=== PATIENT | male | born 1955 | race Caucasian/White ===

== ENCOUNTER 2019-04-07 19:30 | Emergency (ER) | payer OTHER, SELFPAY ==
[2019-04-07 20:18] LABS: #Basophils 0.1 thou/uL (0.0-0.2); #Eosinphils 0.3 thou/uL (0.0-0.7); #Lymphocytes 3.7 thou/uL (1.20-3.40); #Monocytes 0.9 thou/uL (0.11-0.59); %Basophils 0.7 % (0.0-1.0); %Eosinophils 2.1 % (0.0-10.0); %Lymphocytes 26.3 % (21.0-51.0); %Monocytes 6.1 % (0.0-10.0); %Neutrophils 64.7 % (42.0-75.0); Hemoglobin 15.3 g/dL (14.0-18.0); Mean Corpuscular HGB CONC 34.5 g/dL (32.0-36.0); Mean Corpuscular Hemoglobin 30.4 pg (27.0-31.0); Mean Corpuscular Volume 88.1 fL (78.0-98.0); Mean Platelet Volume 7.4 fL (7.4-10.4); Platelet Count 338 thou/uL (130-400); Red Blood Cell (RBC) Count 5.04 mill/uL (4.70-6.10); White Blood Cell (WBC) Count 13.9 thou/uL (4.8-10.8)
[2019-04-07 20:36] LABS: ALT (SGPT) 13 U/L (8-55); AST (SGOT) 10 U/L (5-34); Albumin 3.9 g/dL (3.4-4.8); Alkaline Phosphatase 99 U/L (40-150); Anion Gap 17 mmol/L (10-20); BUN (Urea Nitrogen) 16 mg/dL (8.4-25.7); Bilirubin, Total 0.2 mg/dL (0.2-1.2); Calc. Creatinine Clearance 0 mL/min (70-130); Calcium 9.1 mg/dL (7.8-10.44); Carbon Dioxide 19 mmol/L (23-31); Chloride 103 mmol/L (98-107); Estimated GFR-MDRD 49; Globulin 2.8 g/dL (2.4-3.5); Glucose 272 mg/dL (80-115); Potassium 4.2 mmol/L (3.5-5.1); Protein, Total 6.7 g/dL (5.8-8.1); Sodium 135 mmol/L (136-145)
--- NOTE | 2019-04-07 22:22 | RAD ---
PORTABLE CHEST: 04/07/19 HISTORY: Syncope. COMPARISON: 06/19/16 exam. Heart size is within normal limits. Aorta is mildly tortuous. The lungs are clear of infiltrates. No significant bony findings. IMPRESSION: No active intrathoracic disease. POS: OFF
--- NOTE | 2019-04-09 11:05 | EKG ---
Test Reason : Blood Pressure : / mmHG Vent. Rate : 085 BPM Atrial Rate : 085 BPM P-R Int : 158 ms QRS Dur : 106 ms QT Int : 370 ms P-R-T Axes : 045 050 050 degrees QTc Int : 440 ms Normal sinus rhythm Normal ECG Confirmed by ELSIE DURAN ([id number]), editor continuity and script CAROL MASSEY ([id number]) on 04/09/2019 11:05:47 AM Referred By: Confirmed By:ELSIE DURAN
== END 2019-04-07 22:38 | disposition home or self-care (01) ==
LOC: ERS 19:30
DX: R42 Dizziness and giddiness (principal); I25.2 Old myocardial infarction; I10 Essential (primary) hypertension; E78.5 Hyperlipidemia, unspecified; F17.210 Nicotine dependence, cigarettes, uncomplicated; Z79.899 Other long term (current) drug therapy
CPT/HCPCS: 71045; 80053; 84484; 85025; 93005; 96360

== ENCOUNTER 2019-12-09 16:38 | Emergency (ER) | payer SELFPAY ==
--- NOTE | 2019-12-09 17:21 | RAD ---
EXAM: Two views chest PROVIDED CLINICAL HISTORY: Cough, flulike symptoms. COMPARISON: 02/04/2017 FINDINGS: Cardiac silhouette and pulmonary vasculature are within normal limits. The lungs are clear. Remote l eft-sided rib fractures again seen. Chest is stable compared to prior exam. IMPRESSION: No acute cardiopulmonary process.
== END 2019-12-09 17:52 | disposition home or self-care (01) ==
LOC: ERS 16:38
DX: J06.9 Acute upper respiratory infection, unspecified (principal); I25.2 Old myocardial infarction; I10 Essential (primary) hypertension; E78.5 Hyperlipidemia, unspecified; F17.210 Nicotine dependence, cigarettes, uncomplicated; Z71.6 Tobacco abuse counseling; Z79.899 Other long term (current) drug therapy
CPT/HCPCS: 71046; 87804; 99406

== ENCOUNTER 2020-06-28 18:06 | Inpatient (IN) | payer OTHER, SELFPAY ==
[~2020-06-28 18:06] MED LIST: Iopamidol-370 76% 500 ML 1 ML ONE
[2020-06-28 18:26] LABS: #Basophils 0.1 thou/uL (0.0-0.2); #Eosinphils 0.3 thou/uL (0.0-0.7); #Lymphocytes 3.4 thou/uL (1.20-3.40); #Monocytes 0.9 thou/uL (0.11-0.59); #Neutrophils 9.1 thou/uL (1.40-6.50); %Basophils 0.7 % (0.0-1.0); %Eosinophils 1.8 % (0.0-10.0); %Lymphocytes 24.9 % (21.0-51.0); %Monocytes 6.3 % (0.0-10.0); %Neutrophils 66.3 % (42.0-75.0); Hemoglobin 16.8 g/dL (14.0-18.0); Mean Corpuscular HGB CONC 34.7 g/dL (32.0-36.0); Mean Corpuscular Hemoglobin 30.6 pg (27.0-31.0); Mean Platelet Volume 7.7 fL (7.4-10.4); Platelet Count 337 thou/uL (130-400); RBC Distribution Width 11.8 % (11.5-14.5); Red Blood Cell (RBC) Count 5.49 mill/uL (4.70-6.10); White Blood Cell (WBC) Count 13.7 thou/uL (4.8-10.8)
[2020-06-28 18:32] LABS: INR-International Normal Ratio 0.9; Prothrombin Time 12.4 sec (12.0-14.7)
--- NOTE | 2020-06-28 18:40 | CT ---
CT BRAIN NONCONTRAST: DATE: 06/28/2020 HISTORY: 65-year-old male with acute stroke symptoms: New right upper extremity weakness and numbness. At 6:33 PM 06/28/2020 Dr. Salazar verbally gave this report to Dr. Roach. COMPARISON: 07/19/[address] FINDINGS: The 07/19/2007 CT was normal. The MRI of that same day showed what was then a small acute infarction i nvolving the left basal ganglia extending to involve the left pillai radiata, caudate body, and periventricular white matter. That corresponds to a patchy small apparently old infarction in that lo cation on the current CT. On the current CT, there are similar but several smaller patchy areas of low attenuation elsewhere in the left frontal deep cerebral white matter and left genu of corpus callosum. These are of indeterminate ages. They occurred sometime after 07/19/2007. No mass effect, midline shift, obstructive hydrocephalus, acute intra-axial or extra-axial hemorrhage , extra-axial fluid collection, or calvarial fracture. IMPRESSION: Several small patchy white matter infarctions in the left frontal deep cerebral white matter. The lar gest of these, involving the left corpus striatum, is old. The others are age-indeterminate.
[2020-06-28 18:42] LABS: ALT (SGPT) 12 U/L (8-55); AST (SGOT) 10 U/L (5-34); Alkaline Phosphatase 96 U/L (40-110); Anion Gap 13 mmol/L (10-20); BUN (Urea Nitrogen) 16 mg/dL (8.4-25.7); Bilirubin, Total 0.4 mg/dL (0.2-1.2); CK (CPK) 32 U/L (30-200); Calc. Creatinine Clearance 0 mL/min (70-130); Calcium 9.1 mg/dL (7.8-10.44); Carbon Dioxide 24 mmol/L (23-31); Chloride 100 mmol/L (98-107); Estimated GFR-MDRD 71; Glucose 352 mg/dL (80-115); Potassium 4.1 mmol/L (3.5-5.1); Sodium 133 mmol/L (136-145)
[2020-06-28] MEDS ORDERED: Aspirin 325 MG TAB ONE (18:47)
--- NOTE | 2020-06-28 18:56 | CT ---
CT ANGIOGRAM NECK WITH CONTRAST CT ANGIOGRAM BRAIN WITH CONTRAST: DATE: 06/28/2020 HISTORY: 65-year-old male with acute stroke symptoms At 6:53 PM 06/28/2020, Dr. Salazar gave verbal report to Dr. Roach TECHNIQUE: After IV contrast injection, arterial bolus chasing technique scan performed from aortic arch to vert ex of head. Coronal and sagittal 3-D MIP reconstructions. FINDINGS: Bilaterally symmetrical enlargement of palatine tonsils, adenoids, and lingual tonsil. No dural venous sinus thrombosis. Bilateral ACAs: No high-grade stenosis or occlusion. Bilateral MCAs: No M1 segment thrombosis, high-grade stenosis, or occlusion. Bilateral department operations manager: P1 and P2 segments patent. Bilateral superior cerebellar: Proximal portions patent Basilar: No high-grade stenosis or occlusion. Intracranial left vertebral: Patent Intracranial right vertebral: Diminutive Carotid siphons bilaterally: Heavily calcified atheromatous plaque such that difficult to evaluate de gree of stenosis. Cervical left vertebral: Origin difficult to evaluate. No high-grade stenosis in rest of vessel. Rosalinda nant. Cervical right vertebral: Diminutive. Origin difficult to evaluate. Brachiocephalic: No high-grade stenosis. Right subclavian: Obscured by streak artifact from contrast bolus in adjacent right subclavian vein. Left subclavian: No high-grade stenosis. Right common carotid: Origin partially obscured by streak artifact from contrast bolus in adjacent ve in. No high-grade stenosis in the mid and distal portions. Left common carotid: No high-grade stenosis. Right internal carotid: Multifocal calcified plaque at proximal portion, including origin. No high-gr akira stenosis. Left internal carotid: Heavily calcified and noncalcified plaque at origin and proximal internal light tid. Mild to moderate stenosis. Rest of the vessel is normal in caliber. IMPRESSION: 1) no M1 segment middle cerebral artery thrombosis or occlusion. 2) atherosclerosis of bilateral proximal internal carotid arteries without high-grade stenosis. 3) difficult to evaluate caliber of bilateral carotid siphons due to extensive atherosclerotic calcif ication. 4) diffuse hyperplasia of Waldeyer's ring.
--- NOTE | 2020-06-28 19:07 | RAD ---
CHEST ONE VIEW: 06/28/20 INDICATION: Right sided weakness. COMPARISON: Prior exam dated 12/09/19. FINDINGS: There is focal eventration of the right hemidiaphragm. The lungs are clear. Heart size is normal. No acute osseous abnormality is evident. IMPRESSION: No acute cardiopulmonary abnormality. POS: BH
[2020-06-28] MEDS ORDERED: Labetalol HCl 100 MG/20 ML VIAL SLOW IVP PRN (21:22)
[2020-06-28] MEDS ORDERED: hydrALAZINE 20 MG/ML VIAL SLOW IVP PRN (21:22)
[2020-06-28] MEDS ORDERED: Acetaminophen 325 MG TAB PO PRN (21:25)
[2020-06-28] MEDS ORDERED: Ondansetron PF 4 MG/2 ML Vial IVP PRN (21:25)
[2020-06-28] MEDS ORDERED: Electrolyte Replacement Protoc 1 EACH EACH FS SCH (21:30)
--- NOTE | 2020-06-28 21:37 | PDOC.HHP ---
Hospitalist HPI - History of Present Illness R sided weakness History of Present Illness: Patient is a 65 year old male with PMH stroke, MN, DM, HTN who presents to ED for R sided weakness. Patient reports symptoms began today at 11am, numbness and weakness of R arm and leg. He was at [facility]F clinic getting blood drawn when symptoms started. Symptoms have somewhat improved since then but still feels parasthesia and weakness on R arm and leg and having difficulty walking. He has a history of CVA 12 years ago w/ no residual deficits, MN 4 years ago[address] He sees Dr Allen of cardiology, has not had any recent cardiac imaging or tests and was supposed to see Dr Allen thursday. Patient denies known history of arrhythmia/afib. In ED, patient not a tPA candidate due to time from onset. WBC 13, glucose 352, CXR unremarkable, CT head with chronic appearing white matter changes, CTA head with no M1 occlusion or blockages. Patient to be admitted to complete stroke rule out. Medication list in ED notes and meditech reviewed, however patient states he only takes an aspirin and a lisinopril every day. Ahsan called and she is trying to provide actual current medication list. He is smoker, 1.5 ppd. Hospitalist ROS - Review of Systems Constitutional: denies: fever, chills, sweats, weakness, malaise, other Eyes: denies: pain, vision change, conjunctivae inflammation, eyelid inflammation, redness, other ENT: denies: ear pain, ear discharge, nose pain, nose discharge, nose congestion , mouth pain, mouth swelling, throat pain, throat swelling, other Respiratory: denies: cough, dry, shortness of breath, hemoptysis, SOB with excertion, pleuritic pain, sputum, wheezing, other Cardiovascular: denies: chest pain, palpitations, orthopnea, paroxysmal noc. dyspnea, edema, light headedness, other Gastrointestinal: denies: nausea, vomiting, abdominal pain, diarrhea, constipation, melena, hematochezia, other Genitourinary: denies: dysuria, frequency, incontinence, hematuria, retention, other Musculoskeletal: denies: neck pain, shoulder pain, arm pain, back pain, hand pain, leg pain, foot pain, other Skin: denies: rash, lesions, anni, bruising, other Neurological: reports: weakness, numbness. denies: incoordination, change in speech, confusion, seizures, other Other: weakness and numbness R sided see HPI - Medication Medications: lisinopril [facility] Jun 28, 2020 18:49 TC Charles Laine TABLET : Strength - 10 mg : ORAL Patient Dose: 10 mg Oral once a day. clopidogrel [facility] Jun 28, 2020 19:06 TC Charles Laine tablet : Strength - 75 mg : ORAL Patient Dose: 75 mg Oral. metFORMIN [facility] Jun 28, 2020 19:07 TC Charles Laine tablet : Strength - 1,000 mg : ORAL Patient Dose: 1000 mg Oral. carvedilol [facility] Jun 28, 2020 19:07 TC Charles Laine tablet : Strength - 6.25 mg : ORAL Patient Dose: 6.25 mg Oral. Hospitalist History - Past Medical History Other Medical History: Past medical history includes cardiac history, myocardial infarction, Treated with stent placement, Number of stents: 3, Notes: stroke in 2007, Past medical history includes history of hyperlipidemia, Past medical history includes history of hypertension. - Past Surgical History Other Surgical History: cardiac stents Surgical history of orthopedic surgery, partial amputation of left thumb, hernia repair. - Family History Family History: reports: no pertinent history - Social History Smoking Status: Current every day smoker (1.5 ppd) Alcohol: reports: None Drugs: reports: none - Exam General Appearance: NAD, awake alert Eye: PERRL, anicteric sclera ENT: normocephalic atraumatic, no oropharyngeal lesions, moist mucosa Neck: supple, symmetric, no JVD, no thyromegaly, no lymphadenopathy, no carotid bruit Heart: RRR, no murmur, no gallops, no rubs, normal peripheral pulses Respiratory: CTAB, no wheezes, no rales, no ronchi, normal chest expansion, no tachypnea, normal percussion Gastrointestinal: soft, non-tender, non-distended, normal bowel sounds, no palpable masses, no hepatomegaly, no splenomegaly, no bruit Extremities: no cyanosis, no clubbing, no edema Skin: normal turgor, no lesions, no rashes Neurological: cranial nerve grossly intact Neurological - other findings: R sided reduced sensation arm/leg and 4/5 muscle strength R. L normal. Musculoskeletal: normal tone, normal strength, no muscle wasting Psychiatric: normal affect, normal behavior, A&O x 3 Hospitalist Results - Labs Result Diagrams: 06/28/20 18:17 06/28/20 18:17 Lab results: WBC 13.7 thou/uL (4.8-10.8) H 06/28/20 18:17 Hgb 16.8 g/dL (14.0-18.0) 06/28/20 18:17 Hct 48.3 % (42.0-52.0) 06/28/20 18:17 MCV 88.0 fL (78.0-98.0) 06/28/20 18:17 Plt Count 337 thou/uL (130-400) 06/28/20 18:17 Neutrophils % 66.3 % (42.0-75.0) 06/28/20 18:17 Sodium 133 mmol/L (136-145) L 06/28/20 18:17 Potassium 4.1 mmol/L (3.5-5.1) 06/28/20 18:17 Chloride 100 mmol/L (98-107) 06/28/20 18:17 Carbon Dioxide 24 mmol/L (23-31) 06/28/20 18:17 BUN 16 mg/dL (8.4-25.7) 06/28/20 18:17 Creatinine 1.05 mg/dL (0.7-1.3) 06/28/20 18:17 Glucose 352 mg/dL (80-115) H 06/28/20 18:17 Calcium 9.1 mg/dL (7.8-10.44) 06/28/20 18:17 Total Bilirubin 0.4 mg/dL (0.2-1.2) 06/28/20 18:17 AST 10 U/L (5-34) 06/28/20 18:17 ALT 12 U/L (8-55) 06/28/20 18:17 Alkaline Phosphatase 96 U/L (40-110) 06/28/20 18:17 Creatine Kinase 32 U/L (30-200) 06/28/20 18:17 Troponin I 0.023 ng/mL (< 0.028) 06/28/20 18:17 B-Natriuretic Peptide 11.7 pg/mL (0-100) 06/28/20 18:17 Serum Total Protein 7.0 g/dL (5.8-8.1) 06/28/20 18:17 Albumin 4.0 g/dL (3.4-4.8) 06/28/20 18:17 Additional comment: VITAL SIGNS [facility] Jun 28, 2020 20:25 TC Rosario, Brooke BP: 141/82 Pulse: 84 Resp: 19 Pain: 0 O2 sat: 98 on (Room Air) Time: 06/28/2020 20:25. - EKG Interpretation EKG: NSR [address] changes or AVB. Hospitalist H&P A/P - Plan Plan: tristin is a 65 year old male with PMH stroke, MN, DM, HTN, HLD who presents to ED for R sided weakness. # R sided weakness # history of stroke 12 years ago # history of MN w/ stents 4 years ago # HTN # HLD numbness and weakness of R arm and leg beginning today at 11am, patient sees Dr Allen of cardiology does not have a neurologist, no recent cardiac imaging or tests and was supposed to see Dr Allen thursday. no known history of arrhythmia/afib. not tPA candidate. - admit to stroke unit w/ stroke order set, rehab consult - CT head and CTA head reports reviewed, MRI and echo ordered - consult neurology - monitor for afib on telemetry - continue ASA, add lipitor. final med rec pending from [facility]. - permissive HTN # non insulin dependant diabetes w/ hyperglycemia - start SSI, first dose now, A1C # leukocytosis - suspect due to stress of acute illness # tobacco user - smoking cessation education, nicotine patch # DVT/GI ppx # Full code
[2020-06-28 21:45] LABS: Troponin I 0.014 ng/mL (< 0.028)
[2020-06-28] MEDS ORDERED: Nicotine 14 MG PATCH TD SCH (22:00)
[2020-06-28] MEDS: Insulin Regular 300 UNITS/3 ML VIAL SC PRN (22:32)
[2020-06-29 01:18] LABS: Troponin I 0.013 ng/mL (< 0.028)
[2020-06-29 02:09] VITALS: BMI 28.8
[2020-06-29 05:26] LABS: #Basophils 0.1 thou/uL (0.0-0.2); #Eosinphils 0.3 thou/uL (0.0-0.7); #Lymphocytes 3.3 thou/uL (1.20-3.40); %Basophils 0.8 % (0.0-1.0); %Eosinophils 2.5 % (0.0-10.0); %Lymphocytes 25.8 % (21.0-51.0); %Neutrophils 62.9 % (42.0-75.0); Hemoglobin 16.1 g/dL (14.0-18.0); Mean Corpuscular Hemoglobin 29.5 pg (27.0-31.0); Mean Corpuscular Volume 89.5 fL (78.0-98.0); Mean Platelet Volume 7.7 fL (7.4-10.4); Platelet Count 322 thou/uL (130-400); Red Blood Cell (RBC) Count 5.45 mill/uL (4.70-6.10); White Blood Cell (WBC) Count 12.7 thou/uL (4.8-10.8)
[2020-06-29 06:05] LABS: Triglycerides 322 mg/dL (Less than 150)
[2020-06-29 06:14] LABS: Anion Gap 17 mmol/L (10-20); BUN (Urea Nitrogen) 17 mg/dL (8.4-25.7); Calc. Creatinine Clearance 106 mL/min (70-130); Calcium 8.8 mg/dL (7.8-10.44); Carbon Dioxide 23 mmol/L (23-31); Cardiac Risk 6.9 (Less than 4.5); Chloride 102 mmol/L (98-107); Cholesterol 208 mg/dl (< 200 Desired); Estimated GFR-MDRD 75; Glucose 206 mg/dL (80-115); HDL Cholesterol 30 mg/dL (>60 Neg Risk); Potassium 4.3 mmol/L (3.5-5.1); Sodium 138 mmol/L (136-145)
[2020-06-29 06:22] LABS: LDL Cholesterol, Calculated 114 mg/dL
[2020-06-29] MEDS ORDERED: Enoxaparin Sodium 40 MG/0.4 ML SYRINGE SC SCH (09:00)
[2020-06-29] MEDS ORDERED: Aspirin 325 MG TAB PO SCH (09:00)
[2020-06-29] MEDS ORDERED: Lisinopril 2.5 MG TAB PO SCH (09:00)
[2020-06-29] MEDS ORDERED: Famotidine 20 MG TAB PO SCH (09:00)
--- NOTE | 2020-06-29 09:50 | MRI ---
MRI BRAIN NONCONTRAST: DATE: 06/29/2020 HISTORY: 65-year-old male with acute stroke symptoms: Right upper extremity and right lower extremity weakness . COMPARISON: MRI of 07/19/2007 FINDINGS: Previously, on the 07/19/2007 MRI, there was a small acute infarction at the left pillai radiata, invo lving small portion of left caudate body and upper portion of left basal ganglia. That is now a region of encephalomalacia and gliosis. The most superior pulmonary abutting the caudate body, in the periventricular white matter, is approximately 1 x 1.5 cm. There are also many additional new small focal T2 and FLAIR hyperintense lesions in the bilateral cor rahul radiata and centrum semiovale, right external capsule, bilateral thalami, left globus pallidus, and left genu of corpus callosum, all representing numerous old lacunar infarctions, which occurred s ometime after the previous MRI of 2006. There is no obstructive hydrocephalus. There is no midline shift or any other evidence of mass effect . There is no extra-axial fluid collection. There are mild chronic ischemic white matter changes due to microvascular atherosclerosis. There is otherwise no major intra-axial signal abnormality, rec ent hemorrhage, or restricted diffusion. IMPRESSION: 1) numerous old lacunar infarctions of bilateral basal ganglia, bilateral thalami, and bilateral deep cerebral white matter, which all occurred sometime after the previous MRI of 07/19/2007. 2) the small old infarction of the left corpus striatum was acute at the time of that 07/19/2007 MRI. 3) no acute intracranial findings; no acute infarction.
[2020-06-29] MEDS: Insulin Regular 300 UNITS/3 ML VIAL SC PRN (11:44)
--- NOTE | 2020-06-29 12:21 | CON ---
NEUROLOGY CONSULTATION DATE OF CONSULTATION: 06/29/2020 REASON FOR CONSULTATION: Rule out stroke. HISTORY OF PRESENT ILLNESS: Mr. Domínguez is a 65-year-old male with history significant for prior stroke, myocardial infarction, hypertension, and diabetes mellitus, presented to the emergency room with right-sided weakness. Per the patient, the symptoms began yesterday around 11 a.m. with numbness and weakness of the right arm and the leg. He was at the CHF clinic at that time getting his blood drawn when his symptoms started, and they became progressively worse, and he had difficulty walking, so he decided to come to the emergency room for further evaluation. He has history of stroke 12 years ago with no residual deficits and IA 4 years ago. The patient denies nausea, vomiting, headache, chest pain, abdominal pain, recent illness, palpitations, neck pain, loss of vision, blurred vision, problems with speech or swallowing. - Review of Systems Constitutional: denies: fever, chills, sweats, weakness, malaise, other Eyes: denies: pain, vision change, conjunctivae inflammation, eyelid inflammation, redness, other ENT: denies: ear pain, ear discharge, nose pain, nose discharge, nose congestion , mouth pain, mouth swelling, throat pain, throat swelling, other Respiratory: denies: cough, dry, shortness of breath, hemoptysis, SOB with excertion, pleuritic pain, sputum, wheezing, other Cardiovascular: denies: chest pain, palpitations, orthopnea, paroxysmal noc. dyspnea, edema, light headedness, other Gastrointestinal: denies: nausea, vomiting, abdominal pain, diarrhea, constipation, melena, hematochezia, other Genitourinary: denies: dysuria, frequency, incontinence, hematuria, retention, other Musculoskeletal: denies: neck pain, shoulder pain, arm pain, back pain, hand pain, leg pain, foot pain, other Skin: denies: rash, lesions, anni, bruising, other Neurological: reports: weakness, numbness. denies: incoordination, change in speech, confusion, seizures, other Other: weakness and numbness R sided - HOME MEDICATIONS: 1. Lisinopril 10 mg once daily. 2. Carvedilol 6.25 mg once daily. 3. Metformin 1000 mg daily. 4. Plavix 75 mg daily. PAST MEDICAL HISTORY: Coronary artery disease, myocardial infarction, status post stent placement, prior stroke in 2007, hyperlipidemia, and hypertension. PAST SURGICAL HISTORY: Status post cardiac stents, partial amputation of the left thumb, and hernia repair. FAMILY HISTORY: No family history of stroke. SOCIAL HISTORY: The patient smokes 1.5 packs per day. Denies alcohol or illegal drug use. - Exam General Appearance: NAD, awake alert Eye: PERRL, anicteric sclera ENT: normocephalic atraumatic, no oropharyngeal lesions, moist mucosa Neck: supple, symmetric, no JVD, no thyromegaly, no lymphadenopathy, no carotid bruit Heart: RRR, no murmur, no gallops, no rubs, normal peripheral pulses Respiratory: CTAB, no wheezes, no rales, no ronchi, normal chest expansion, no tachypnea, normal percussion Gastrointestinal: soft, non-tender, non-distended, normal bowel sounds, no palpable masses, no hepatomegaly, no splenomegaly, no bruit Extremities: no cyanosis, no clubbing, no edema Skin: normal turgor, no lesions, no rashes Neurological: Mental status, the patient is alert and oriented to person, place, and time. Speech is clear. Recent and remote memory intact. Fund of knowledge is appropriate. Cranial nerves II through XII intact. Motor, muscle tone and bulk are normal. Strength 4+/5 on the right 5/5 on the left. Sensory intact. Cerebellar, finger-nose testing intact. Gait deferred due to the patient's safety reasons. DATA REVIEWED: I reviewed the labs, which were significant for hyponatremia of 133 and hyperglycemia of 352. EKG showed normal sinus rhythm. Vital signs; blood pressure 140/80, pulse 84, respiratory rate 18. Lab results: WBC 13.7 thou/uL (4.8-10.8) H 06/28/20 18:17 Hgb 16.8 g/dL (14.0-18.0) 06/28/20 18:17 Hct 48.3 % (42.0-52.0) 06/28/20 18:17 MCV 88.0 fL (78.0-98.0) 06/28/20 18:17 Plt Count 337 thou/uL (130-400) 06/28/20 18:17 Neutrophils % 66.3 % (42.0-75.0) 06/28/20 18:17 Sodium 133 mmol/L (136-145) L 06/28/20 18:17 Potassium 4.1 mmol/L (3.5-5.1) 06/28/20 18:17 Chloride 100 mmol/L (98-107) 06/28/20 18:17 Carbon Dioxide 24 mmol/L (23-31) 06/28/20 18:17 BUN 16 mg/dL (8.4-25.7) 06/28/20 18:17 Creatinine 1.05 mg/dL (0.7-1.3) 06/28/20 18:17 Glucose 352 mg/dL (80-115) H 06/28/20 18:17 Calcium 9.1 mg/dL (7.8-10.44) 06/28/20 18:17 Total Bilirubin 0.4 mg/dL (0.2-1.2) 06/28/20 18:17 AST 10 U/L (5-34) 06/28/20 18:17 ALT 12 U/L (8-55) 06/28/20 18:17 Alkaline Phosphatase 96 U/L (40-110) 06/28/20 18:17 Creatine Kinase 32 U/L (30-200) 06/28/20 18:17 Troponin I 0.023 ng/mL (< 0.028) 06/28/20 18:17 B-Natriuretic Peptide 11.7 pg/mL (0-100) 06/28/20 18:17 Serum Total Protein 7.0 g/dL (5.8-8.1) 06/28/20 18:17 Albumin 4.0 g/dL (3.4-4.8) 06/28/20 18:17 ASSESSMENT AND PLAN: Mr. Harmeet domínguez is a 65-year-old male with medical history significant for prior stroke, myocardial infarction, diabetes, hypertension, and hyperlipidemia, presented with right-sided weakness and paresthesias, which were almost resolved, most likely transient ischemic attack. MRI of the brain reviewed and was negative for acute intracranial process. A 2D echo completed, results pending. A CT of the head did not reveal any acute intracranial pathology. CTA of the head reviewed, results noted. Strict control of blood pressure and blood glucose. We will consider dual therapy with aspirin and statin for secondary stroke prevention. Consider high-intensity statin for secondary stroke prevention. Telemetry to monitor for atrial fibrillation. Check hemoglobin A1c, fasting lipid panel, and TSH. Continue home medications. Continue medical management per primary team. PT/OT/speech. DVT prophylaxis. Plan discussed in detail with the patient and also with the primary attending, Dr. Young. We will continue to follow. Thank you for the consult. Job ID: [id number]
[2020-06-29 12:42] LABS: SARS-CoV-2 MS2 Positive; SARS-CoV-2 N Gene Negative; SARS-CoV-2 S Gene Negative; SARS-CoV-2 by NAA Not Detected (NotDetected); SARS-CoV-2 orf1ab Negative
[2020-06-29] MEDS ORDERED: Lisinopril 20 MG TAB PO SCH (13:45)
[2020-06-29] MEDS ORDERED: Clopidogrel Bisulfate 75 MG TAB PO SCH (13:45)
[2020-06-29 16:11] VITALS: TEMP 97.9
[2020-06-29] MEDS ORDERED: Atorvastatin Calcium 40 MG TAB PO SCH (21:00)
[2020-06-29 21:21] VITALS: BP 139/86
[2020-06-30] MEDS ORDERED: Clopidogrel Bisulfate 75 MG TAB PO SCH (09:00)
== END 2020-06-29 18:15 | disposition home or self-care (01) | DRG 69 ==
LOC: ERS 18:06 → 2SE 19:41
PROVIDERS: ADMIT Internal Medicine; ATTEND Internal Medicine
DX: G45.9 Transient cerebral ischemic attack, unspecified (principal); E87.1 Hypo-osmolality and hyponatremia; Z20.828 Contact with and (suspected) exposure to other viral communicable diseases; I10 Essential (primary) hypertension; E78.5 Hyperlipidemia, unspecified; E11.65 Type 2 diabetes mellitus with hyperglycemia; F17.210 Nicotine dependence, cigarettes, uncomplicated; I25.10 Atherosclerotic heart disease of native coronary artery without angina pectoris; D72.829 Elevated white blood cell count, unspecified; I25.2 Old myocardial infarction; Z86.73 Personal history of transient ischemic attack (TIA), and cerebral infarction without residual deficits; Z79.84 Long term (current) use of oral hypoglycemic drugs; Z95.5 Presence of coronary angioplasty implant and graft; Z89.012 Acquired absence of left thumb; Z79.02 Long term (current) use of antithrombotics/antiplatelets
CPT/HCPCS: 36415; 36416; 70450; 70496; 70498; 70551; 71045; 80048; 80061; 82550; 83880; 84484; 85025; 85610; 85730; 87635; 93005; 93306; J1650; J1815; Q9967; U0003

== ENCOUNTER 2020-07-24 13:34 | Outpatient (CLI) | payer OTHER ==
--- NOTE | 2020-07-28 12:00 | CCLSPC ---
PREOPERATIVE DIAGNOSES: For lower extremity arterial study, claudication, right; multiple CV risk factors. FINDINGS: The patient's right lower extremity demonstrated fairly well-preserved waveform at the femoral level and popliteal level with slightly decreased waveform distally, although ankle-arm index is preserved at 1.02. Toe-brachial index mildly depressed at 0.6. Left lower extremity demonstrates a slightly abnormal waveform at the left femoral level, but improves at the posterior tibial and dorsalis pedis level where it is normal with an ankle-arm index of 0.98 and a preserved toe-brachial index of 0.7. This study suggests some peripheral vascular disease, at least at the right lower extremity level, primarily in the tibioperoneal distribution suggesting popliteal or tibioperoneal disease and could be consistent with a history of vascular claudication in the right leg. Job ID: [id number]
== END 2020-07-24 13:35 | disposition home or self-care (01) ==
LOC: ULT 13:34
PROVIDERS: ATTEND Family Medicine
DX: I73.9 Peripheral vascular disease, unspecified (principal); E78.5 Hyperlipidemia, unspecified; E11.59 Type 2 diabetes mellitus with other circulatory complications; I10 Essential (primary) hypertension
CPT/HCPCS: 93922

== ENCOUNTER 2020-08-09 13:37 | Emergency (ER) | payer OTHER, SELFPAY | END 2020-08-09 17:35 | disposition home or self-care (01) | LOC: ERS 13:37 | DX: I73.9 Peripheral vascular disease, unspecified (principal); I25.2 Old myocardial infarction; E78.5 Hyperlipidemia, unspecified; I10 Essential (primary) hypertension; F17.210 Nicotine dependence, cigarettes, uncomplicated; Z79.84 Long term (current) use of oral hypoglycemic drugs; Z79.899 Other long term (current) drug therapy | CPT/HCPCS: 99283 ==

== ENCOUNTER 2020-08-20 13:25 | Outpatient (CLI) | payer OTHER ==
[2020-08-20] MEDS ORDERED: Iopamidol 370 76% 100 ML VIAL ONE (13:51)
[2020-08-20 13:52] LABS: Estimated GFR-MDRD - POC Greater than 90
--- NOTE | 2020-08-20 15:28 | CT ---
EXAM: CT angiogram abdomen and pelvis with IV contrast and 3-D reconstructions CT angiogram bilateral lower extremities with runoff to the feet with IV contrast and 3-D reconstruct ions PROVIDED CLINICAL HISTORY: Peripheral vascular disease. Right leg pain and redness. COMPARISON: None FINDINGS: Lung bases are clear. The liver, spleen, pancreas, bilateral kidneys, and urinary bladder demonstrate a normal CT appearanc e for arterial phase of imaging. There is nodular thickening involving each adrenal gland with suggestion of a small nodule associated with the left adrenal gland measuring 9 mm. Follow-up evaluation is recommended. Loops of small bowel are normal in caliber. The colon is mostly decompressed. A few scattered colonic diverticuli are visualized. Urinary bladder has a normal CT appearance. Mild degenerative changes are seen in the spine. A small sclerotic density in the left iliac bone is likely due to a small bone island. Celiac and superior mesenteric arteries are patent, but there is mild atherosclerotic irregularity in volving the most proximal celiac artery as well as involving the origin of the common hepatic artery. There is mild narrowing involving the proximal common hepatic artery. There is mild narrowing at the origin of the KELBY. Single patent bilateral renal arteries are visualized with mild atherosclerotic calcifications involving each proximal renal artery. There is mild atherosclerotic calcifications and plaque involving the abdominal aorta and iliac arter ies. Right common iliac artery is ectatic. The iliac arteries are patent bilaterally. Bilateral lower extremity runoff: Right lower extremity: Focal irregular atherosclerotic calcification is seen in the right common femoral artery which obscur es the lumen, but there is suggestion of at least moderate narrowing due to the dense irregular calcification. Mild atherosclerotic narrowing is seen involving the right superficial femoral and art margoth. Profunda femoral artery is patent. There is atherosclerotic calcifications and plaque seen throughout the right lower extremity superficial femoral artery with mild to moderate narrowing seen in the right superficial femoral artery at the level of the mid thigh. There is also mild to moderate narrowing involving the proximal [id number] popliteal artery. The distal right lower ext remity popliteal artery as well as tibial peroneal vessels are not opacified. This is asymmetric compared to the contralateral left side as there is evidence of opacification of the left lower extre mity arterial vessels. This may represent significant stenosis involving the distal right popliteal artery, but this is not appreciated based on this exam due to limited opacification. Left lower extremity: There is mild atherosclerotic plaque involving the left lower extremity femoral arteries with mild na rrowing involving the proximal left superficial femoral artery. The left lower extremity common femoral and profunda femoral arteries are patent. Scattered atherosclerotic plaque and narrowing is s een within the left superficial femoral artery. Left lower extremity popliteal artery is patent. Atherosclerotic plaque is seen throughout the tibial peroneal vessels with only faint opacification i nvolving the region of the dorsalis pedis artery, but there does appear to be three-vessel runoff to the left lower extremity. IMPRESSION: 1. Lack of opacification of the distal right lower extremity popliteal artery and tibial peroneal ves sels. This is asymmetric compared to the contralateral left lower extremity. A definitive focal narrowing is not seen involving the distal right popliteal artery, but this is a possibility given ab sence of contrast enhancement of these vessels possibly secondary to slow flow on the right compared to left lower external. 2. Mild/moderate narrowing involving the proximal [id number] popliteal artery. 3. Eccentric irregular calcification in the mid right lower extremity common femoral artery resulting in at least moderate narrowing of the lumen in this region. 4. Nodular thickening involving the left adrenal gland. Follow-up CT abdomen with and without IV cont rast in 4-6 months is recommended. 5. Additional findings as described above.
== END 2020-08-20 13:26 | disposition home or self-care (01) ==
LOC: BICCT 13:25
PROVIDERS: ATTEND Thoracic Surgery (Cardiothoracic Vascular Surgery)
DX: I70.211 Atherosclerosis of native arteries of extremities with intermittent claudication, right leg (principal); I77.1 Stricture of artery; I70.8 Atherosclerosis of other arteries; E27.8 Other specified disorders of adrenal gland; K57.30 Diverticulosis of large intestine without perforation or abscess without bleeding; M89.9 Disorder of bone, unspecified
CPT/HCPCS: 75635; 82565; Q9967

== ENCOUNTER 2020-09-17 07:14 | Outpatient (CLI) | payer OTHER ==
--- NOTE | 2020-09-18 12:36 | EKG ---
Test Reason : Blood Pressure : / mmHG Vent. Rate : 082 BPM Atrial Rate : 082 BPM P-R Int : 172 ms QRS Dur : 108 ms QT Int : 376 ms P-R-T Axes : 075 085 064 degrees QTc Int : 439 ms Normal sinus rhythm Normal ECG When compared with ECG of 30-JUN-2020 13:55, Nonspecific T wave abnormality no longer evident in Inferior leads Nonspecific T wave abnormality, improved in Lateral leads Confirmed by DR. Bruce FLORES ([id number]) on 09/18/2020 12:35:56 PM Referred By: NIRALI Confirmed By:DR. Bruce FLORES
== END 2020-09-17 07:15 | disposition home or self-care (01) ==
LOC: LABBT 07:14
PROVIDERS: ATTEND Thoracic Surgery (Cardiothoracic Vascular Surgery)
DX: Z01.818 Encounter for other preprocedural examination (principal); I73.9 Peripheral vascular disease, unspecified
CPT/HCPCS: 93005; 93010

== ENCOUNTER 2020-09-17 16:00 | Inpatient (IN) | payer OTHER ==
[2020-09-17 16:57] LABS: Anion Gap 14 mmol/L (10-20); BUN (Urea Nitrogen) 41 mg/dL (8.4-25.7); Calc. Creatinine Clearance 0 mL/min (70-130); Calcium 9.3 mg/dL (7.8-10.44); Carbon Dioxide 26 mmol/L (23-31); Glucose 218 mg/dL (80-115)
[2020-09-17 16:59] LABS: Hemoglobin 13.5 g/dL (14.0-18.0); Mean Corpuscular HGB CONC 33.4 G/DL (32.0-36.0); Mean Corpuscular Hemoglobin 30.3 PG (27.0-33.0); Mean Corpuscular Volume 90.8 fl (80.0-100.0); Mean Platelet Volume 10.1 fl (7.4-10.4); Platelet Count 307 10x3/uL (130-400); Red Blood Cell (RBC) Count 4.45 10x6/uL (4.40-5.80); White Blood Cell (WBC) Count 14.6 10x3/uL (4.5-11.0)
[2020-09-17 17:03] LABS: Chloride 105 mmol/L (98-107); Potassium 4.5 mmol/L (3.5-5.1); Sodium 140 mmol/L (136-145)
[2020-09-18 03:58] LABS: SARS-CoV-2 MS2 Positive; SARS-CoV-2 N Gene Negative; SARS-CoV-2 S Gene Negative; SARS-CoV-2 by NAA Not Detected (NotDetected); SARS-CoV-2 orf1ab Negative
--- NOTE | 2020-09-18 05:11 | HP ---
HISTORY OF PRESENT ILLNESS: A 65-year-old gentleman with history of impaired circulation of his right leg, manifested by coolness of his foot. He had a brainstem infarction, leaving him with some clumsiness on his right side and some swelling in his hand and foot. He denied any previous history of claudication, working in maintenance analyst. He is a current smoker, down from 2 packs a day to 3/4 of a pack a day, as well as diabetes mellitus, which has generally been untreated. He has had previous MIs with three stents in 2004. He states that he does have some pressure in his foot at rest, but not while in bed and it does not impair his sleeping. MEDICATIONS: Include; 1. Metformin 1000 once a day. 2. Lisinopril 20 a day. 3. Plavix 75 a day. 4. Crestor 40 a day. 5. Coreg 6.25 b.i.d. ALLERGIES: NO KNOWN ALLERGIES. PAST MEDICAL HISTORY: As noted above, coronary artery disease, DC, stroke in 2007 and 2019, hyperlipidemia, hypertension, diabetes mellitus, peripheral vascular disease. SURGICAL HISTORY: Stent by Dr. Christine in 2014, orthopedic surgery, and hernia repair. SOCIAL HISTORY: He smokes regularly. He is . Gets no exercise. PHYSICAL EXAMINATION: VITAL SIGNS: Heart rate 80, blood pressure 120/60. Weight 240. BMI 33. GENERAL: Alert, cooperative, well-nourished gentleman with no carotid bruits. CARDIAC: Regular rate and rhythm. No murmurs. LUNGS: Clear to auscultation. ABDOMEN: Soft, nontender, nondistended. EXTREMITIES: He has mild right foot edema. Mild redness. Nontender. Palpable femoral pulses with a palpable left posterior tibial pulse. Doppler pressure on the right DP 90 compared to a left PT of 140 and arm pressure of 110. He has no Doppler signal in the left DP or right PT. DIAGNOSTIC STUDIES: CTA showed multilevel peripheral vascular disease including an 80% right common femoral and 80% mid right SFA stenosis as well as some tibial disease. PLAN: At this time is for right common femoral endarterectomy and possible angioplasty/stenting of the right SFA and informed consent has been obtained. Counseled on risk factor modification. Job ID: [id number]
[2020-09-18 13:43] VITALS: BMI 31.1
[2020-09-20] MEDS ORDERED: Protamine Sulfate 50 MG/5 ML VIAL ONE (06:35)
[2020-09-20] MEDS ORDERED: Heparin 5,000 UNITS/ML VIAL ONE (06:35)
[2020-09-20] MEDS ORDERED: Fentanyl 250 MCG/5 ML VIAL ONE (06:52)
[2020-09-20] MEDS ORDERED: Phenylephrine 10 MG/ML VIAL ONE (08:48)
[2020-09-20] MEDS ORDERED: Fentanyl 100 MCG/2 ML VIAL ONE ×3 (10:51→12:38)
[2020-09-20] MEDS ORDERED: PHENYLEPHRINE-NS 100 MCG/ML 10 ML SYRINGE ONE (10:59)
[2020-09-20] MEDS ORDERED: Ondansetron PF 4 MG/2 ML Vial ONE (10:59)
[2020-09-20] MEDS ORDERED: ePHEDrine 50 MG/ML VIAL ONE (10:59)
[2020-09-20] MEDS ORDERED: Lidocaine 1% PF 5 ML VIAL ONE (10:59)
[2020-09-20] MEDS ORDERED: PROPOFOL 200 MG/20 ML VIAL ONE (10:59)
[2020-09-20] MEDS ORDERED: Rocuronium Bromide 10 MG/ML (10ML VIAL) ONE (10:59)
[2020-09-20] MEDS ORDERED: Glycopyrrolate 0.2 MG/ML 5 ML SYRINGE ONE (10:59)
[2020-09-20] MEDS ORDERED: Ondansetron PF 4 MG/2 ML Vial IVP PRN (13:31)
[2020-09-20] MEDS ORDERED: traMADol HCl 50 MG TAB PO PRN (13:31)
[2020-09-20] MEDS ORDERED: Fentanyl 100 MCG/2 ML VIAL SLOW IVP PRN ×2 (13:31)
[2020-09-20] MEDS ORDERED: Insulin Regular 300 UNITS/3 ML VIAL SC PRN (13:31)
[2020-09-20] MEDS ORDERED: Sodium Chloride 0.9% 1,000 ML IV SCH (13:31)
[2020-09-20] MEDS ORDERED: Acetaminophen 325 MG TAB PO PRN (13:31)
[2020-09-20] MEDS: CEFAZOLIN 2 GM in Premix Bag 1 BAG IVPB SCH ×2 (17:02→23:22)
[2020-09-20] MEDS: metFORMIN 500 MG TAB PO SCH (17:02)
[2020-09-20] MEDS: Carvedilol 6.25 MG TAB PO SCH (20:06)
[2020-09-20] MEDS ORDERED: Rosuvastatin 20 MG TAB PO SCH (21:00)
[2020-09-21 07:45] VITALS: BP 121/73; TEMP 98
[2020-09-21] MEDS: metFORMIN 500 MG TAB PO SCH (07:59)
[2020-09-21] MEDS ORDERED: Glimepiride 4 MG TAB PO SCH (08:00)
[2020-09-21] MEDS: CEFAZOLIN 2 GM in Premix Bag 1 BAG IVPB SCH (08:00)
[2020-09-21] MEDS: Carvedilol 6.25 MG TAB PO SCH (08:00)
[2020-09-21] MEDS ORDERED: Aspirin Chewable 81 MG TAB PO SCH (09:00)
[2020-09-21] MEDS ORDERED: Triamterene/Hydrochlorothiazide 37.5 mg/25 mg Tablet PO SCH (09:00)
[2020-09-21] MEDS ORDERED: Clopidogrel Bisulfate 75 MG TAB PO SCH (09:00)
[2020-09-21] MEDS ORDERED: Lisinopril 20 MG TAB PO SCH (09:00)
--- NOTE | 2020-09-21 16:31 | OP ---
DATE OF PROCEDURE: 09/20/2020 PREOPERATIVE DIAGNOSIS: Peripheral arterial disease. PROCEDURE PERFORMED: Right common and deep femoral endarterectomy with bovine patch angioplasty and angiography and balloon angioplasty of right superficial femoral artery with a 4 x 6 mm Lutonix drug-eluting balloon. CONTRAST: 12 mL. FLUORO TIME: 44 seconds. DESCRIPTION OF PROCEDURE: After prepping and draping, a right groin incision was made. Common superficial and profunda femoral vessels were exposed. The profunda consisted of a very large branch that exited the posteromedially and then immediately dove under the common femoral vein medially. There was a smaller branch laterally. After heparinization with 7500 units of heparin repeating 2500 units at 45 minutes, clamps were applied to the distal external iliac artery above the circumflex femoral branches and to the profunda and then to the superficial femoral artery about 3 cm from its origin. A long arteriotomy was made and endarterectomy was then performed of a very thick calcified plaque. Proximally, it feathered surprisingly well. Distally, it was transected at the origin of the SFA and then teased out of the deep femoral artery as best as could be done. Following that, a bovine patch was used to close the arteriotomy, flushing the inside of the vessel, and then restoring flow. The arteriotomy extended from the proximal most common femoral artery to about 1 cm onto the right SFA. Following completion of this, a 5-0 pursestring suture was placed in the SFA distal to the previous suture line and a needle and guidewire were then placed. Angiography obtained showing about an 80% short stenosis in the SFA as well as diffuse irregularities throughout. The 6 mm Lutonix balloon was then advanced straddling the most severe stenosis and then inflated for 3 minutes with repeat angiography showing probably 20% to 30% residual stenosis. Following this, the sheath and wire were removed and the pursestring suture was secured. Protamine was given to partially reverse the heparin. After good hemostasis had been obtained, the wound was closed in 2 layers with a [id number] Vicryl sutures and then a superficial subcutaneous running layer and then the skin was closed. The patient was to be taken to the recovery room. Job ID: [id number]
--- NOTE | 2020-09-23 12:46 | DIS ---
DATE OF ADMISSION: 09/20/2020 DATE OF DISCHARGE: 09/21/2020 The patient was admitted to the hospital where he underwent a right femoral endarterectomy and angioplasty of his right superficial femoral artery. Postoperative course was unremarkable. He had a strong palpable popliteal pulse. His incision was clean and dry, and he is to be discharged today to resume his home medicines. I have given him specific instructions on wound care with frequent cleansing of the right groin wound and avoid sitting for prolonged periods to minimize maceration of his wound. Discharge and followup instructions otherwise have been discussed. Job ID: [id number]
== END 2020-09-21 10:05 | disposition home or self-care (01) | DRG 254 ==
LOC: SURG A 09-20 05:51
PROVIDERS: ADMIT Thoracic Surgery (Cardiothoracic Vascular Surgery); ATTEND Thoracic Surgery (Cardiothoracic Vascular Surgery)
PROC: 04CK0ZZ Extirpation of Matter from Right Femoral Artery, Open Approach (ICD-10-PCS; principal; 2020-09-20)
PROC: 04UK0JZ Supplement Right Femoral Artery with Synthetic Substitute, Open Approach (ICD-10-PCS; 2020-09-20)
PROC: 047K3Z1 Dilation of Right Femoral Artery using Drug-Coated Balloon, Percutaneous Approach (ICD-10-PCS; 2020-09-20)
PROC: B41FZZZ Fluoroscopy of Right Lower Extremity Arteries (ICD-10-PCS; 2020-09-20)
DX: E11.51 Type 2 diabetes mellitus with diabetic peripheral angiopathy without gangrene (principal); Z20.828 Contact with and (suspected) exposure to other viral communicable diseases; F17.210 Nicotine dependence, cigarettes, uncomplicated; I25.10 Atherosclerotic heart disease of native coronary artery without angina pectoris; E78.5 Hyperlipidemia, unspecified; I10 Essential (primary) hypertension; I25.2 Old myocardial infarction; Z86.73 Personal history of transient ischemic attack (TIA), and cerebral infarction without residual deficits; Z79.899 Other long term (current) drug therapy; Z79.82 Long term (current) use of aspirin; Z79.02 Long term (current) use of antithrombotics/antiplatelets; Z79.84 Long term (current) use of oral hypoglycemic drugs
CPT/HCPCS: 36416; 76000; 80048; 85027; 86850; 86900; 86901; 87635; C1725; J0690; J1642; J1644; J2370; J2405; J2704; J2720; J3010; J3490; J7620; U0003

== ENCOUNTER 2020-10-28 15:30 | Emergency (ER) | payer OTHER ==
[2020-10-28 16:29] LABS: #Basophils 0.1 thou/uL (0.0-0.2); #Eosinphils 0.3 thou/uL (0.0-0.7); #Lymphocytes 3.7 thou/uL (1.20-3.40); #Monocytes 1.3 thou/uL (0.11-0.59); #Neutrophils 8.6 thou/uL (1.40-6.50); %Basophils 0.8 % (0.0-1.0); %Lymphocytes 26.5 % (21.0-51.0); %Monocytes 9.5 % (0.0-10.0); %Neutrophils 61.2 % (42.0-75.0); Hemoglobin 12.9 g/dL (14.0-18.0); Mean Corpuscular HGB CONC 34.4 g/dL (32.0-36.0); Mean Corpuscular Hemoglobin 31.2 pg (27.0-31.0); Mean Corpuscular Volume 90.5 fL (78.0-98.0); Mean Platelet Volume 7.4 fL (7.4-10.4); Platelet Count 347 thou/uL (130-400); RBC Distribution Width 12.5 % (11.5-14.5); Red Blood Cell (RBC) Count 4.13 mill/uL (4.70-6.10); White Blood Cell (WBC) Count 14.1 thou/uL (4.8-10.8)
[2020-10-28 16:49] LABS: ALT (SGPT) 14 U/L (8-55); AST (SGOT) 13 U/L (5-34); Albumin 4.2 g/dL (3.4-4.8); Alkaline Phosphatase 54 U/L (40-110); Anion Gap 16 mmol/L (10-20); BUN (Urea Nitrogen) 37 mg/dL (8.4-25.7); Bilirubin, Total 0.4 mg/dL (0.2-1.2); Calc. Creatinine Clearance 0 mL/min (70-130); Calcium 9.1 mg/dL (7.8-10.44); Carbon Dioxide 24 mmol/L (23-31); Chloride 103 mmol/L (98-107); Globulin 3.1 g/dL (2.4-3.5); Glucose 147 mg/dL (80-115); Potassium 4.3 mmol/L (3.5-5.1); Protein, Total 7.3 g/dL (5.8-8.1); Sodium 139 mmol/L (136-145)
[2020-10-28 18:17] LABS: Anion Gap 16 mmol/L (10-20); BUN (Urea Nitrogen) 35 mg/dL (8.4-25.7); Calc. Creatinine Clearance 0 mL/min (70-130); Calcium 8.6 mg/dL (7.8-10.44); Carbon Dioxide 21 mmol/L (23-31); Chloride 106 mmol/L (98-107); Glucose 115 mg/dL (80-115); Potassium 3.6 mmol/L (3.5-5.1); Sodium 139 mmol/L (136-145)
[2020-10-28 21:28] LABS: SARS-CoV-2 MS2 Positive; SARS-CoV-2 N Gene Negative; SARS-CoV-2 S Gene Negative; SARS-CoV-2 by NAA Not Detected (NotDetected); SARS-CoV-2 orf1ab Negative
== END 2020-10-28 18:49 | disposition home or self-care (01) ==
LOC: ERS 15:30
DX: J06.9 Acute upper respiratory infection, unspecified (principal); Z20.822 Contact with and (suspected) exposure to COVID-19; N28.9 Disorder of kidney and ureter, unspecified; Z79.899 Other long term (current) drug therapy; Z79.84 Long term (current) use of oral hypoglycemic drugs; I25.2 Old myocardial infarction; Z86.73 Personal history of transient ischemic attack (TIA), and cerebral infarction without residual deficits; E78.5 Hyperlipidemia, unspecified; I10 Essential (primary) hypertension; F17.210 Nicotine dependence, cigarettes, uncomplicated
CPT/HCPCS: 36415; 80053; 85025; 87635; 99284; U0003

== ENCOUNTER 2020-11-14 22:24 | Inpatient (IN) | payer OTHER, SELFPAY ==
[2020-11-14] MEDS ORDERED: Dextrose 50% Abboject 50 ML SYRINGE ONE (22:28)
[2020-11-14] MEDS ORDERED: Ondansetron ODT 4 MG TAB ONE (23:02)
[2020-11-14 23:50] LABS: #Basophils 0.2 thou/uL (0.0-0.2); #Eosinphils 0.4 thou/uL (0.0-0.7); #Lymphocytes 5.3 thou/uL (1.20-3.40); #Monocytes 1.6 thou/uL (0.11-0.59); #Neutrophils 12.3 thou/uL (1.40-6.50); %Basophils 0.8 % (0.0-1.0); %Monocytes 7.8 % (0.0-10.0); %Neutrophils 62.4 % (42.0-75.0); Hemoglobin 13.5 g/dL (14.0-18.0); Mean Corpuscular HGB CONC 34.7 g/dL (32.0-36.0); Mean Corpuscular Hemoglobin 31.4 pg (27.0-31.0); Mean Corpuscular Volume 90.5 fL (78.0-98.0); Platelet Count 394 thou/uL (130-400); RBC Distribution Width 12.1 % (11.5-14.5); Red Blood Cell (RBC) Count 4.32 mill/uL (4.70-6.10); White Blood Cell (WBC) Count 19.8 thou/uL (4.8-10.8)
[2020-11-15 00:02] LABS: ALT (SGPT) 13 U/L (8-55); AST (SGOT) 15 U/L (5-34); Albumin 4.4 g/dL (3.4-4.8); Alkaline Phosphatase 61 U/L (40-110); Anion Gap 16 mmol/L (10-20); BUN (Urea Nitrogen) 56 mg/dL (8.4-25.7); Bilirubin, Total 0.3 mg/dL (0.2-1.2); Calc. Creatinine Clearance 0 mL/min (70-130); Calcium 9.7 mg/dL (7.8-10.44); Carbon Dioxide 26 mmol/L (23-31); Chloride 103 mmol/L (98-107); Globulin 3.1 g/dL (2.4-3.5); Potassium 3.5 mmol/L (3.5-5.1); Protein, Total 7.5 g/dL (5.8-8.1); Sodium 141 mmol/L (136-145)
[2020-11-15 00:04] LABS: Glucose 51 mg/dL (80-115)
[2020-11-15] MEDS ORDERED: Ondansetron ODT 4 MG TAB PO PRN (02:09)
[2020-11-15] MEDS ORDERED: Dextrose 5% in Water 1,000 ML IV PRN (02:09)
[2020-11-15] MEDS ORDERED: Dextrose 50% Abboject 50 ML SYRINGE SLOW IVP PRN (02:09)
[2020-11-15] MEDS ORDERED: Ondansetron PF 4 MG/2 ML Vial IVP PRN (02:09)
[2020-11-15] MEDS ORDERED: Dextrose 10% in Water 1,000 ML IV SCH (02:15)
[2020-11-15] MEDS ORDERED: Dextrose 5 %-0.45 % NaCl 1,000 ML IV SCH (03:00)
[2020-11-15 05:11] LABS: Creatinine, Urine 82.76 mg/dL (63-166)
[2020-11-15 05:49] LABS: #Basophils 0.1 thou/uL (0.0-0.2); #Eosinphils 0.2 thou/uL (0.0-0.7); #Lymphocytes 4.1 thou/uL (1.20-3.40); #Monocytes 1.1 thou/uL (0.11-0.59); #Neutrophils 8.6 thou/uL (1.40-6.50); %Basophils 0.6 % (0.0-1.0); %Eosinophils 1.1 % (0.0-10.0); %Lymphocytes 29.3 % (21.0-51.0); %Monocytes 7.7 % (0.0-10.0); %Neutrophils 61.3 % (42.0-75.0); Hemoglobin 10.4 g/dL (14.0-18.0); Mean Corpuscular HGB CONC 34.6 g/dL (32.0-36.0); Mean Corpuscular Hemoglobin 31.3 pg (27.0-31.0); Mean Corpuscular Volume 90.4 fL (78.0-98.0); Mean Platelet Volume 7.6 fL (7.4-10.4); Platelet Count 316 thou/uL (130-400); Red Blood Cell (RBC) Count 3.33 mill/uL (4.70-6.10); White Blood Cell (WBC) Count 14.1 thou/uL (4.8-10.8)
[2020-11-15 06:00] LABS: Anion Gap 10 mmol/L (10-20); BUN (Urea Nitrogen) 46 mg/dL (8.4-25.7); Calc. Creatinine Clearance 0 mL/min (70-130); Calcium 8.2 mg/dL (7.8-10.44); Carbon Dioxide 22 mmol/L (23-31); Chloride 110 mmol/L (98-107); Glucose 95 mg/dL (80-115); Potassium 4.2 mmol/L (3.5-5.1); Sodium 138 mmol/L (136-145)
[2020-11-15 08:18] LABS: SARS-CoV-2 PCR by NAA Not Detected (NotDetected)
[2020-11-15] MEDS: Heparin 5,000 UNITS/ML VIAL SC SCH ×3 (08:32→20:51)
[2020-11-15] MEDS: Clopidogrel Bisulfate 75 MG TAB PO SCH (08:32)
[2020-11-15] MEDS: Famotidine 20 MG TAB PO SCH ×2 (08:32→20:50)
[2020-11-15] MEDS: Carvedilol 6.25 MG TAB PO SCH ×2 (08:32→20:51)
[2020-11-15] MEDS: Gabapentin 100 MG CAP PO SCH ×3 (08:32→20:50)
[2020-11-15] MEDS: Aggrenox 200-25mg CAP PO SCH ×2 (08:32→20:50)
[2020-11-15] MEDS ORDERED: Lisinopril 20 MG TAB PO SCH (09:00)
[2020-11-15 13:31] LABS: Anion Gap 11 mmol/L (10-20); BUN (Urea Nitrogen) 43 mg/dL (8.4-25.7); Calc. Creatinine Clearance 0 mL/min (70-130); Calcium 8.3 mg/dL (7.8-10.44); Carbon Dioxide 22 mmol/L (23-31); Chloride 111 mmol/L (98-107); Glucose 77 mg/dL (80-115); Potassium 4.1 mmol/L (3.5-5.1); Sodium 140 mmol/L (136-145)
[2020-11-15] MEDS: Sodium Bicarbonate Tab 325 MG TAB PO SCH (20:50)
[2020-11-15] MEDS: Rosuvastatin 10 MG TAB PO SCH (20:50)
[2020-11-15] MEDS ORDERED: Rosuvastatin 20 MG TAB PO SCH (21:00)
[2020-11-16 04:41] LABS: Albumin 3.3 g/dL (3.4-4.8); Anion Gap 14 mmol/L (10-20); BUN (Urea Nitrogen) 44 mg/dL (8.4-25.7); BUN/Creatinine Ratio 12.15; Calc. Creatinine Clearance 0 mL/min (70-130); Calcium 8.6 mg/dL (7.8-10.44); Carbon Dioxide 21 mmol/L (23-31); Chloride 113 mmol/L (98-107); Glucose 99 mg/dL (80-115); Phosphorus 4.4 mg/dL (2.3-4.7); Sodium 144 mmol/L (136-145)
[2020-11-16] MEDS ORDERED: Sodium Bicarbonate 150 MEQ in Dextrose 5% in Water 1,000 ML IV SCH ×2 (08:00→16:45)
[2020-11-16] MEDS ORDERED: Lactated Ringer's 500 ML IV SCH (09:00)
[2020-11-16] MEDS: Heparin 5,000 UNITS/ML VIAL SC SCH ×3 (09:37→21:32)
[2020-11-16] MEDS: Aggrenox 200-25mg CAP PO SCH ×3 (09:41→21:31)
[2020-11-16] MEDS: Famotidine 20 MG TAB PO SCH ×2 (09:45→12:01)
[2020-11-16] MEDS: Gabapentin 100 MG CAP PO SCH ×4 (09:45→21:30)
[2020-11-16] MEDS: Carvedilol 6.25 MG TAB PO SCH ×2 (09:45→12:01)
[2020-11-16] MEDS: Clopidogrel Bisulfate 75 MG TAB PO SCH ×2 (09:45→12:01)
[2020-11-16] MEDS: Sodium Bicarbonate Tab 325 MG TAB PO SCH ×3 (09:46→21:30)
[2020-11-16] MEDS: Carvedilol 3.125 MG TAB PO SCH (21:30)
[2020-11-16] MEDS: Rosuvastatin 10 MG TAB PO SCH (21:30)
[2020-11-17 06:16] LABS: Albumin 3.4 g/dL (3.4-4.8); Anion Gap 12 mmol/L (10-20); BUN (Urea Nitrogen) 34 mg/dL (8.4-25.7); BUN/Creatinine Ratio 10.76; Calc. Creatinine Clearance 0 mL/min (70-130); Calcium 8.4 mg/dL (7.8-10.44); Carbon Dioxide 28 mmol/L (23-31); Chloride 108 mmol/L (98-107); Glucose 179 mg/dL (80-115); Potassium 4.1 mmol/L (3.5-5.1); Sodium 144 mmol/L (136-145)
[2020-11-17] MEDS: Famotidine 20 MG TAB PO SCH (08:45)
[2020-11-17] MEDS: Sodium Bicarbonate Tab 325 MG TAB PO SCH ×2 (08:45→20:35)
[2020-11-17] MEDS: Carvedilol 3.125 MG TAB PO SCH ×2 (08:45→20:36)
[2020-11-17] MEDS: Clopidogrel Bisulfate 75 MG TAB PO SCH (08:45)
[2020-11-17] MEDS: Gabapentin 100 MG CAP PO SCH ×3 (08:45→20:36)
[2020-11-17] MEDS: Heparin 5,000 UNITS/ML VIAL SC SCH ×3 (08:46→20:36)
[2020-11-17 09:01] LABS: Hemoglobin A1c 6.4 % (4.0-6.0)
[2020-11-17] MEDS: Aggrenox 200-25mg CAP PO SCH ×2 (10:49→20:39)
[2020-11-17] MEDS: HumaLOG 300 UNITS/3 ML VIAL SC PRN ×3 (11:15→20:36)
[2020-11-17 20:17] VITALS: TEMP 98.2
[2020-11-17] MEDS: Rosuvastatin 10 MG TAB PO SCH (20:35)
[2020-11-17] MEDS ORDERED: Sodium Bicarbonate 75 MEQ in Sodium Chloride 0.45% 1,000 ML IV SCH (23:15)
[2020-11-18 07:18] LABS: Anion Gap 13 mmol/L (10-20); BUN (Urea Nitrogen) 30 mg/dL (8.4-25.7); Calc. Creatinine Clearance 0 mL/min (70-130); Calcium 8.7 mg/dL (7.8-10.44); Carbon Dioxide 26 mmol/L (23-31); Chloride 108 mmol/L (98-107); Glucose 168 mg/dL (80-115); Potassium 3.7 mmol/L (3.5-5.1); Sodium 143 mmol/L (136-145)
[2020-11-18 08:16] VITALS: BP 145/80
[2020-11-18] MEDS: Sodium Bicarbonate Tab 325 MG TAB PO SCH (08:16)
[2020-11-18] MEDS: Aggrenox 200-25mg CAP PO SCH (08:16)
[2020-11-18] MEDS: Famotidine 20 MG TAB PO SCH (08:16)
[2020-11-18] MEDS: Gabapentin 100 MG CAP PO SCH (08:16)
[2020-11-18] MEDS: Clopidogrel Bisulfate 75 MG TAB PO SCH (08:16)
[2020-11-18] MEDS: Carvedilol 3.125 MG TAB PO SCH (08:16)
[2020-11-18] MEDS: Heparin 5,000 UNITS/ML VIAL SC SCH (08:17)
[2020-11-18] MEDS ORDERED: Insulin Glargine 7 UNITS in Pre-Filled Syringe 1 EACH SC SCH (09:00)
[2020-11-18] MEDS ORDERED: Sodium Bicarbonate 75 MEQ in Sodium Chloride 0.45% 1,000 ML IV SCH (09:45)
== END 2020-11-18 11:00 | disposition home or self-care (01) | DRG 638 ==
LOC: ERS 22:24 → 3SE 11-15 02:13 → OBSVTOIN 11-15 16:32 → ONC 11-15 17:25
PROVIDERS: ADMIT Family Medicine; ATTEND Family Medicine
DX: E11.649 Type 2 diabetes mellitus with hypoglycemia without coma (principal); E87.2 Acidosis; N17.9 Acute kidney failure, unspecified; Z20.822 Contact with and (suspected) exposure to COVID-19; N18.30 Chronic kidney disease, stage 3 unspecified; E11.22 Type 2 diabetes mellitus with diabetic chronic kidney disease; I12.9 Hypertensive chronic kidney disease with stage 1 through stage 4 chronic kidney disease, or unspecified chronic kidney disease; F17.210 Nicotine dependence, cigarettes, uncomplicated; E86.1 Hypovolemia; E11.51 Type 2 diabetes mellitus with diabetic peripheral angiopathy without gangrene; E78.5 Hyperlipidemia, unspecified; I25.10 Atherosclerotic heart disease of native coronary artery without angina pectoris; A08.4 Viral intestinal infection, unspecified; T46.4X5A Adverse effect of angiotensin-converting-enzyme inhibitors, initial encounter; Z79.899 Other long term (current) drug therapy; Z79.84 Long term (current) use of oral hypoglycemic drugs; Z79.82 Long term (current) use of aspirin; Z79.02 Long term (current) use of antithrombotics/antiplatelets; I25.2 Old myocardial infarction; Z90.49 Acquired absence of other specified parts of digestive tract; Z95.5 Presence of coronary angioplasty implant and graft; Z86.73 Personal history of transient ischemic attack (TIA), and cerebral infarction without residual deficits
CPT/HCPCS: 36415; 36416; 76770; 80048; 80053; 80069; 82570; 83036; 84300; 85025; 87635; 93975; 96365; 96366; 96372; G0378; J1644; J1815; J7070; Q0162; U0003; U0005

== ENCOUNTER 2022-06-18 15:04 | Inpatient (IN) | payer MEDICARE ==
[2022-06-18 17:15] LABS: Hemoglobin 14.9 g/dL (14.0-18.0); Mean Corpuscular HGB CONC 33.1 g/dL (32.0-36.0); Mean Corpuscular Hemoglobin 30.1 pg (27.0-31.0); Mean Platelet Volume 7.9 fL (7.4-10.4); Platelet Count 427 thou/uL (130-400); RBC Distribution Width 12.6 % (11.5-14.5); Red Blood Cell (RBC) Count 4.95 mill/uL (4.70-6.10); White Blood Cell (WBC) Count 27.1 thou/uL (4.8-10.8)
[2022-06-18] MEDS ORDERED: Ondansetron PF 4 MG/2 ML Vial ONE (17:16)
[2022-06-18 17:29] LABS: ALT (SGPT) 11 U/L (8-55); AST (SGOT) 17 U/L (5-34); Albumin 4.3 g/dL (3.4-4.8); Alkaline Phosphatase 73 U/L (40-110); Anion Gap 60 mmol/L (10-20); BUN (Urea Nitrogen) 71 mg/dL (8.4-25.7); Bilirubin, Total 0.5 mg/dL (0.2-1.2); Calc. Creatinine Clearance 0 mL/min (70-130); Calcium 9.3 mg/dL (7.8-10.44); Chloride 82 mmol/L (98-107); Estimated GFR 5; Globulin 3.1 g/dL (2.4-3.5); Lipase 15 U/L (8-78); Magnesium 2.1 mg/dL (1.6-2.6); Potassium 3.6 mmol/L (3.5-5.1); Protein, Total 7.4 g/dL (5.8-8.1); Sodium 146 mmol/L (136-145)
[2022-06-18 17:34] LABS: Band 4 % (5-11); Lymphocytes 9 % (21-51); MDiff Complete? YES; Monocytes 7 % (0-10); Neutrophil 73 % (42-75); Platelet Morphology Comment Appears Increased; Polychromasia SLIGHT = 2-3 cells (100X) (0-2/hpf); Reactive Lymphocytes 7 % (0-10)
[2022-06-18 17:37] LABS: Carbon Dioxide 8 mmol/L (23-31); Glucose 56 mg/dL (80-115)
[2022-06-18] MEDS ORDERED: Promethazine HCl 25 MG in Sodium Chloride 0.9% 50 ML IVPB SCH (18:00)
[2022-06-18 18:23] LABS: pH (venous) 7.05 (7.32-7.43)
[2022-06-18 18:24] LABS: Actual Bicarbonate (HCO3v) 6 mEq/L (22-28); Base Excess -22.7 mEq/L (-2.0 to +3.0)
[2022-06-18 18:25] LABS: Calcium, Ionized (venous) 0.94 mmol/L (1.16-1.32); Chloride (VBG) 83 mmol/L (98-106); Hemoglobin (Hb) 15.5 g/dL (12.6-17.4); Potassium (VBG) 3.75 mmol/L (3.70-5.30); Sodium 142.3 mmol/L (133-146)
[2022-06-18] MEDS ORDERED: Magnesium 2 GM/50 ML BAG (IN WATER) ONE (18:30)
[2022-06-18] MEDS ORDERED: Morphine 4 MG/ML VIAL ONE (19:07)
[2022-06-18] MEDS ORDERED: cefTRIAXone\\ROCEPHIN 1 GM VIAL ONE (20:17)
[2022-06-18] MEDS ORDERED: Dextrose 5% in Water 1,000 ML IV PRN (20:31)
[2022-06-18] MEDS ORDERED: Dextrose 50% Abboject 50 ML SYRINGE SLOW IVP PRN (20:31)
[2022-06-18] MEDS ORDERED: HumaLOG 300 UNITS/3 ML VIAL SC PRN (20:35)
[2022-06-18] MEDS ORDERED: hydrALAZINE 20 MG/ML VIAL SLOW IVP PRN (20:38)
[2022-06-18] MEDS ORDERED: Morphine 2 MG/ML VIAL SLOW IVP PRN (20:38)
[2022-06-18] MEDS ORDERED: Sodium Bicarb 50 MEQ/50 ML Abboject 8.4% SYRINGE IVP SCH (20:45)
[2022-06-18] MEDS ORDERED: Sodium Bicarbonate 150 MEQ in Dextrose 5% in Water 1,000 ML IV SCH (21:00)
[2022-06-18] MEDS ORDERED: Famotidine/PF 20 mg/2ml Vial SLOW IVP SCH (21:00)
[2022-06-18 21:50] LABS: Vancomycin, Trough Less than 1.1 ug/mL
[2022-06-18 22:02] LABS: Phosphorus 17.1 mg/dL (2.3-4.7)
[2022-06-18] MEDS ORDERED: Sodium Bicarb 50 MEQ/50 ML VIAL ONE (22:25)
[2022-06-18] MEDS: Sodium Bicarb 50 MEQ/50 ML VIAL IVP SCH ×2 (22:31→23:42)
[2022-06-18 23:14] LABS: ALT (SGPT) 15 U/L (8-55); AST (SGOT) 29 U/L (5-34); Alkaline Phosphatase 77 U/L (40-110); BUN (Urea Nitrogen) 77 mg/dL (8.4-25.7); Bilirubin, Total 0.4 mg/dL (0.2-1.2); Calc. Creatinine Clearance 10 mL/min (70-130); Calcium 8.6 mg/dL (7.8-10.44); Chloride 81 mmol/L (98-107); Estimated GFR 5; Globulin 2.8 g/dL (2.4-3.5); Glucose 294 mg/dL (80-115); Potassium 3.9 mmol/L (3.5-5.1); Protein, Total 6.8 g/dL (5.8-8.1); Sodium 147 mmol/L (136-145)
[2022-06-18 23:17] LABS: Carbon Dioxide Less than 8 mmol/L (23-31)
[2022-06-18] MEDS: Heparin 5,000 UNITS/ML VIAL SC SCH (23:41)
[2022-06-18] MEDS: metroNIDAZOLE 500 MG in Premix Bag 1 BAG IVPB SCH (23:42)
[2022-06-18] MEDS: Nicotine 21 MG PATCH TD SCH (23:43)
[2022-06-18] MEDS ORDERED: Sodium Bicarb 50 MEQ/50 ML VIAL IVP SCH (23:45)
[2022-06-18] MEDS ORDERED: Cefepime 2 GM in Sodium Chloride 0.9% 100 ML IVPB SCH (23:59)
[2022-06-19 00:04] LABS: Bacteria/HPF None Seen HPF (None Seen); Bilirubin Negative (Negative); Blood, Urine 1+ (Negative); Clarity Turbid (Clear); Glucose, Urine (Dipstick) Normal (Negative); Ketone, Urine 10 mg/dL (Negative); Leukocyte Negative Leu/uL (Negative); Nitrite Negative (Negative); Protein, Urine (Dipstick) 100 mg/dL (Neg-Trace); RBC/HPF 0-3 HPF (0-3); Specific Gravity, Urine 1.017 (1.002-1.036); Squamous Epithelial 0-3 HPF (0-3); Urobilinogen Normal mg/dL (Less than 2); pH, Urine 5.5 (5.0-9.0)
[2022-06-19] MEDS ORDERED: Vancomycin 1 GM in Premix Bag 1 BAG IVPB SCH (01:00)
[2022-06-19 01:07] LABS: Bacteria/HPF None Seen HPF (None Seen); Bilirubin Negative (Negative); Blood, Urine 2+ (Negative); Clarity Clear (Clear); Glucose, Urine (Dipstick) Normal (Negative); Ketone, Urine 40 mg/dL (Negative); Leukocyte Negative Leu/uL (Negative); Nitrite Negative (Negative); Protein, Urine (Dipstick) 70 mg/dL (Neg-Trace); Specific Gravity, Urine 1.013 (1.002-1.036); Squamous Epithelial 0-3 HPF (0-3); Urobilinogen Normal mg/dL (Less than 2); pH, Urine 5.5 (5.0-9.0)
[2022-06-19 01:08] LABS: Creatinine, Urine 65.56 mg/dL (63-166); Potassium, Urine Less than 10.0 mmol/L; Sodium, Urine 123 mmol/L (Not Available)
[2022-06-19] MEDS ORDERED: DOPamine 400 MG/D5W 250 ML 250 ML IVPB SCH (01:45)
[2022-06-19 02:09] LABS: BUN (Urea Nitrogen) 83 mg/dL (8.4-25.7); Calc. Creatinine Clearance 10 mL/min (70-130); Chloride 83 mmol/L (98-107); Estimated GFR 6; Glucose 351 mg/dL (80-115); Potassium 4.5 mmol/L (3.5-5.1); Sodium 149 mmol/L (136-145)
[2022-06-19 02:10] LABS: Carbon Dioxide Less than 8 mmol/L (23-31)
[2022-06-19 02:30] LABS: Lactic Acid 19.9 mmol/L (0.5-2.2)
[2022-06-19 02:33] LABS: SARS-CoV-2 NAA Rapid Test Not Detected (NotDetected)
[2022-06-19] MEDS ORDERED: Sodium Bicarb 50 MEQ/50 ML VIAL ONE (02:40)
[2022-06-19] MEDS ORDERED: Sodium Bicarb 50 MEQ/50 ML VIAL IVP SCH (03:00)
[2022-06-19] MEDS: HumaLOG 300 UNITS/3 ML VIAL SC PRN ×3 (03:08→18:05)
[2022-06-19] MEDS: metroNIDAZOLE 500 MG in Premix Bag 1 BAG IVPB SCH ×3 (05:45→21:38)
[2022-06-19] MEDS: Sodium Bicarbonate 150 MEQ in Dextrose 5% in Water 1,000 ML IV SCH ×3 (05:45→18:02)
[2022-06-19 05:47] LABS: Actual Bicarbonate (HCO3a) 12.7 mEq/L (22-28); Base Excess (BEa) -10.5 mEq/L (-2.0 to +3.0); Calcium, Ionized (arterial) 0.83 mmol/L (1.12-1.30); Carboxyhemoglobin (COHb) 0.3 gm% (0.0-3.0); Hemoglobin (Hb) 12.7 g/dL (14.0-18.0); O2 Tension (PaO2), arterial 84.3 mmHg (> 80.0); Potassium - ABG Lab 3.93 mmol/L (3.70-5.30); pH, Arterial 7.37 (7.35-7.45)
[2022-06-19 05:48] LABS: CO2 Tension 22.4 mmHg (35.0-45.0); Puncture Site LRA
[2022-06-19 07:29] LABS: ALT (SGPT) 13 U/L (8-55); AST (SGOT) 23 U/L (5-34); Albumin 3.3 g/dL (3.4-4.8); Alkaline Phosphatase 58 U/L (40-110); Anion Gap 59 mmol/L (10-20); BUN (Urea Nitrogen) 87 mg/dL (8.4-25.7); Bilirubin, Total 0.4 mg/dL (0.2-1.2); Calc. Creatinine Clearance 10 mL/min (70-130); Calcium 7.2 mg/dL (7.8-10.44); Carbon Dioxide 13 mmol/L (23-31); Chloride 81 mmol/L (98-107); Estimated GFR 5; Globulin 1.8 g/dL (2.4-3.5); Glucose 307 mg/dL (80-115); Magnesium 2.2 mg/dL (1.6-2.6); Potassium 3.9 mmol/L (3.5-5.1); Protein, Total 5.1 g/dL (5.8-8.1); Sodium 149 mmol/L (136-145)
[2022-06-19 07:31] LABS: ALT (SGPT) 13 U/L (8-55); AST (SGOT) 24 U/L (5-34); Albumin 3.2 g/dL (3.4-4.8); Alkaline Phosphatase 57 U/L (40-110); Anion Gap 58 mmol/L (10-20); BUN (Urea Nitrogen) 84 mg/dL (8.4-25.7); BUN/Creatinine Ratio 8.79; Bilirubin, Total 0.4 mg/dL (0.2-1.2); Calc. Creatinine Clearance 10 mL/min (70-130); Calcium 7.3 mg/dL (7.8-10.44); Carbon Dioxide 13 mmol/L (23-31); Chloride 80 mmol/L (98-107); Estimated GFR 6; Globulin 2.2 g/dL (2.4-3.5); Glucose 300 mg/dL (80-115); Phosphorus 10.4 mg/dL (2.3-4.7); Potassium 3.8 mmol/L (3.5-5.1); Protein, Total 5.4 g/dL (5.8-8.1); Sodium 147 mmol/L (136-145)
[2022-06-19 07:47] LABS: Lactic Acid 14.7 mmol/L (0.5-2.2)
[2022-06-19] MEDS ORDERED: Heparin 10,000 UNITS/ 10 ML VIAL ONE (09:28)
[2022-06-19 10:56] LABS: ALT (SGPT) 13 U/L (8-55); AST (SGOT) 22 U/L (5-34); Albumin 3.3 g/dL (3.4-4.8); Alkaline Phosphatase 57 U/L (40-110); Anion Gap 52 mmol/L (10-20); BUN (Urea Nitrogen) 85 mg/dL (8.4-25.7); Bilirubin, Total 0.3 mg/dL (0.2-1.2); Calc. Creatinine Clearance 10 mL/min (70-130); Calcium 7.3 mg/dL (7.8-10.44); Carbon Dioxide 18 mmol/L (23-31); Chloride 80 mmol/L (98-107); Estimated GFR 6; Globulin 2.1 g/dL (2.4-3.5); Glucose 239 mg/dL (80-115); Potassium 3.4 mmol/L (3.5-5.1); Protein, Total 5.4 g/dL (5.8-8.1); Sodium 147 mmol/L (136-145)
[2022-06-19] MEDS: Heparin 5,000 UNITS/ML VIAL SC SCH ×2 (11:15→21:37)
[2022-06-19] MEDS ORDERED: Dextrose 5 %-0.45 % NaCl 1,000 ML IV SCH (15:00)
[2022-06-19 18:32] LABS: HBSAg Index 0.24 S/CO (0-0.99); Hep B Core Total Ab Non-Reactive (NonReactive); Hep B Core Total Index 0.06 S/CO (0-0.79); Hep B Surf Ag Non-Reactive S/CO (NonReactive)
[2022-06-19 18:33] LABS: HBSAB Concentration Less than 8.00 mIU/mL; Hep B Surf AB Non-Reactive (NonReactive); Hep C IgG Ab Non-Reactive (NonReactive); Hep C Index 0.08 S/CO (0-0.79)
[2022-06-19] MEDS: Nicotine 21 MG PATCH TD SCH (21:37)
[2022-06-19] MEDS: Pantoprazole 40 MG VIAL IVP SCH (21:38)
[2022-06-20] MEDS: Cefepime 1 GM in Sodium Chloride 0.9% 100 ML IVPB SCH ×2 (00:14→23:44)
[2022-06-20] MEDS: Sodium Bicarbonate 150 MEQ in Dextrose 5% in Water 1,000 ML IV SCH (00:19)
[2022-06-20 04:01] LABS: #Lymphocytes 1.7 thou/uL (1.20-3.40); #Monocytes 1.1 thou/uL (0.11-0.59); #Neutrophils 19.1 thou/uL (1.40-6.50); %Basophils 0.1 % (0.0-1.0); %Eosinophils 0.1 % (0.0-10.0); %Lymphocytes 7.6 % (21.0-51.0); %Monocytes 5.2 % (0.0-10.0); Hemoglobin 11.1 g/dL (14.0-18.0); Mean Corpuscular HGB CONC 33.7 g/dL (32.0-36.0); Mean Corpuscular Volume 88.9 fL (78.0-98.0); Mean Platelet Volume 7.6 fL (7.4-10.4); Platelet Count 265 thou/uL (130-400); RBC Distribution Width 12.3 % (11.5-14.5); Red Blood Cell (RBC) Count 3.69 mill/uL (4.70-6.10); White Blood Cell (WBC) Count 21.9 thou/uL (4.8-10.8)
[2022-06-20 04:24] LABS: ALT (SGPT) 13 U/L (8-55); AST (SGOT) 22 U/L (5-34); Albumin 2.8 g/dL (3.4-4.8); Alkaline Phosphatase 52 U/L (40-110); BUN (Urea Nitrogen) 57 mg/dL (8.4-25.7); Bilirubin, Total 0.6 mg/dL (0.2-1.2); Calc. Creatinine Clearance 15 mL/min (70-130); Calcium 6.7 mg/dL (7.8-10.44); Chloride 85 mmol/L (98-107); Estimated GFR 9; Glucose 205 mg/dL (80-115); Potassium 2.8 mmol/L (3.5-5.1); Protein, Total 4.8 g/dL (5.8-8.1); Sodium 142 mmol/L (136-145)
[2022-06-20 04:27] LABS: Anion Gap 22 mmol/L (10-20); Carbon Dioxide 37 mmol/L (23-31)
[2022-06-20] MEDS ORDERED: Potassium Chloride 40 MEQ in Premix Bag 1 BAG IVPB SCH (05:15)
[2022-06-20] MEDS: metroNIDAZOLE 500 MG in Premix Bag 1 BAG IVPB SCH ×3 (05:37→22:41)
[2022-06-20 07:20] LABS: Magnesium 1.5 mg/dL (1.6-2.6)
[2022-06-20] MEDS ORDERED: Magnesium 2 GM/50 ML(in water) 2 GM in Premix Bag 1 BAG IVPB SCH (08:00)
[2022-06-20] MEDS ORDERED: Heparin 10,000 UNITS/ 10 ML VIAL ONE (09:29)
[2022-06-20] MEDS ORDERED: Metoclopramide HCl 10 MG/2 ML VIAL IVP SCH (11:00)
[2022-06-20] MEDS: Heparin 5,000 UNITS/ML VIAL SC SCH ×3 (11:27→21:06)
[2022-06-20] MEDS: Albumin 25% 25 GM/100 ML BOT IVPB SCH ×3 (11:31→23:45)
[2022-06-20 12:45] LABS: Anion Gap 14 mmol/L (10-20); BUN (Urea Nitrogen) 26 mg/dL (8.4-25.7); Calc. Creatinine Clearance 26 mL/min (70-130); Calcium 7.4 mg/dL (7.8-10.44); Carbon Dioxide 34 mmol/L (23-31); Chloride 94 mmol/L (98-107); Estimated GFR 17; Glucose 127 mg/dL (80-115); Magnesium 1.9 mg/dL (1.6-2.6); Potassium 3.4 mmol/L (3.5-5.1); Sodium 139 mmol/L (136-145)
[2022-06-20] MEDS: HumaLOG 300 UNITS/3 ML VIAL SC PRN ×2 (13:53→18:27)
[2022-06-20] MEDS: Pantoprazole 40 MG VIAL IVP SCH (20:12)
[2022-06-20] MEDS: Nicotine 21 MG PATCH TD SCH (20:13)
[2022-06-21 04:53] LABS: #Eosinphils 0.1 thou/uL (0.0-0.7); #Lymphocytes 1.9 thou/uL (1.20-3.40); #Neutrophils 11.5 thou/uL (1.40-6.50); %Basophils 0.3 % (0.0-1.0); %Eosinophils 0.4 % (0.0-10.0); %Lymphocytes 13.2 % (21.0-51.0); %Neutrophils 79.1 % (42.0-75.0); Hemoglobin 10.6 g/dL (14.0-18.0); Mean Corpuscular HGB CONC 33.5 g/dL (32.0-36.0); Mean Corpuscular Hemoglobin 30.3 pg (27.0-31.0); Mean Corpuscular Volume 90.2 fL (78.0-98.0); Mean Platelet Volume 8.1 fL (7.4-10.4); Platelet Count 213 thou/uL (130-400); RBC Distribution Width 12.2 % (11.5-14.5); Red Blood Cell (RBC) Count 3.51 mill/uL (4.70-6.10); White Blood Cell (WBC) Count 14.6 thou/uL (4.8-10.8)
[2022-06-21 05:10] LABS: ALT (SGPT) 13 U/L (8-55); AST (SGOT) 20 U/L (5-34); Albumin 3.6 g/dL (3.4-4.8); Alkaline Phosphatase 62 U/L (40-110); Anion Gap 17 mmol/L (10-20); BUN (Urea Nitrogen) 28 mg/dL (8.4-25.7); Bilirubin, Total 1.1 mg/dL (0.2-1.2); Calc. Creatinine Clearance 23 mL/min (70-130); Calcium 7.7 mg/dL (7.8-10.44); Carbon Dioxide 31 mmol/L (23-31); Chloride 100 mmol/L (98-107); Estimated GFR 14; Globulin 1.9 g/dL (2.4-3.5); Glucose 115 mg/dL (80-115); Protein, Total 5.5 g/dL (5.8-8.1); Sodium 145 mmol/L (136-145)
[2022-06-21] MEDS: Albumin 25% 25 GM/100 ML BOT IVPB SCH ×2 (06:01→12:02)
[2022-06-21] MEDS: metroNIDAZOLE 500 MG in Premix Bag 1 BAG IVPB SCH (06:01)
[2022-06-21] MEDS ORDERED: Potassium Chloride 20 MEQ TAB PO SCH (07:45)
[2022-06-21] MEDS: Heparin 5,000 UNITS/ML VIAL SC SCH ×2 (08:14→20:41)
[2022-06-21] MEDS ORDERED: Heparin 10,000 UNITS/ 10 ML VIAL ONE (09:30)
[2022-06-21] MEDS: Ondansetron PF 4 MG/2 ML Vial IVP PRN ×2 (13:41→20:40)
[2022-06-21] MEDS: Cefdinir 300 MG CAP PO SCH (17:01)
[2022-06-21] MEDS: Rosuvastatin 20 MG TAB PO SCH (20:40)
[2022-06-21] MEDS: Carvedilol 3.125 MG TAB PO SCH (20:40)
[2022-06-21] MEDS: Nicotine 21 MG PATCH TD SCH (20:41)
[2022-06-21] MEDS: Cilostazol 100 MG TAB PO SCH (20:43)
[2022-06-22 04:05] LABS: Anion Gap 18 mmol/L (10-20); BUN (Urea Nitrogen) 16 mg/dL (8.4-25.7); Calc. Creatinine Clearance 41 mL/min (70-130); Calcium 8.7 mg/dL (7.8-10.44); Carbon Dioxide 26 mmol/L (23-31); Chloride 102 mmol/L (98-107); Estimated GFR 28; Glucose 137 mg/dL (80-115); Potassium 3.3 mmol/L (3.5-5.1); Sodium 143 mmol/L (136-145)
[2022-06-22] MEDS: Cilostazol 100 MG TAB PO SCH ×2 (09:36→21:51)
[2022-06-22] MEDS: Aspirin 81 mg Enteric Coated Tablet PO SCH (09:36)
[2022-06-22] MEDS: Clopidogrel Bisulfate 75 MG TAB PO SCH (09:36)
[2022-06-22] MEDS: Heparin 5,000 UNITS/ML VIAL SC SCH ×2 (09:36→21:52)
[2022-06-22] MEDS: Carvedilol 3.125 MG TAB PO SCH ×2 (09:36→21:51)
[2022-06-22] MEDS: Ondansetron PF 4 MG/2 ML Vial IVP PRN ×2 (10:30→17:42)
[2022-06-22] MEDS ORDERED: Bisacodyl 10 MG SUPP PR PRN (10:49)
[2022-06-22] MEDS: Rosuvastatin 20 MG TAB PO SCH (21:51)
[2022-06-22] MEDS: Senokot S 8.6-50 MG TAB PO SCH (21:51)
[2022-06-22] MEDS: Nicotine 21 MG PATCH TD SCH (21:52)
[2022-06-22 21:53] LABS: Anion Gap 19 mmol/L (10-20); BUN (Urea Nitrogen) 23 mg/dL (8.4-25.7); Calc. Creatinine Clearance 33 mL/min (70-130); Calcium 8.5 mg/dL (7.8-10.44); Carbon Dioxide 23 mmol/L (23-31); Chloride 101 mmol/L (98-107); Estimated GFR 26; Glucose 157 mg/dL (80-115); Magnesium 1.6 mg/dL (1.6-2.6); Potassium 3.1 mmol/L (3.5-5.1); Sodium 140 mmol/L (136-145)
[2022-06-23 04:25] LABS: #Eosinphils 0.1 thou/uL (0.0-0.7); #Lymphocytes 0.6 thou/uL (1.20-3.40); #Monocytes 0.9 thou/uL (0.11-0.59); #Neutrophils 8.8 thou/uL (1.40-6.50); %Basophils 0.3 % (0.0-1.0); %Eosinophils 1.1 % (0.0-10.0); %Lymphocytes 5.8 % (21.0-51.0); %Monocytes 8.8 % (0.0-10.0); Hemoglobin 13.6 g/dL (14.0-18.0); Mean Corpuscular HGB CONC 35.5 g/dL (32.0-36.0); Mean Corpuscular Hemoglobin 31.4 pg (27.0-31.0); Mean Corpuscular Volume 88.5 fL (78.0-98.0); Mean Platelet Volume 8.2 fL (7.4-10.4); Platelet Count 236 thou/uL (130-400); Red Blood Cell (RBC) Count 4.33 mill/uL (4.70-6.10); White Blood Cell (WBC) Count 10.5 thou/uL (4.8-10.8)
[2022-06-23 04:44] LABS: Anion Gap 19 mmol/L (10-20); BUN (Urea Nitrogen) 25 mg/dL (8.4-25.7); Calc. Creatinine Clearance 36 mL/min (70-130); Calcium 8.7 mg/dL (7.8-10.44); Carbon Dioxide 23 mmol/L (23-31); Chloride 100 mmol/L (98-107); Estimated GFR 26; Glucose 148 mg/dL (80-115); Sodium 139 mmol/L (136-145)
[2022-06-23] MEDS: Senokot S 8.6-50 MG TAB PO SCH ×2 (09:47→21:02)
[2022-06-23] MEDS: Cilostazol 100 MG TAB PO SCH ×2 (09:47→21:02)
[2022-06-23] MEDS: Carvedilol 3.125 MG TAB PO SCH ×2 (09:48→21:02)
[2022-06-23] MEDS: Heparin 5,000 UNITS/ML VIAL SC SCH ×2 (09:48→21:02)
[2022-06-23] MEDS: Aspirin 81 mg Enteric Coated Tablet PO SCH (09:48)
[2022-06-23] MEDS: Polyethylene Glycol 3350 17 GM Packet PO SCH (09:49)
[2022-06-23] MEDS: Clopidogrel Bisulfate 75 MG TAB PO SCH (09:59)
[2022-06-23] MEDS ORDERED: Potassium Chloride 20 MEQ TAB PO SCH (11:45)
[2022-06-23] MEDS: HumaLOG 300 UNITS/3 ML VIAL SC PRN (12:26)
[2022-06-23] MEDS ORDERED: Acetaminophen 500 MG TAB PO PRN (13:37)
[2022-06-23] MEDS: Cefdinir 300 MG CAP PO SCH (16:23)
[2022-06-23] MEDS: Nicotine 21 MG PATCH TD SCH (21:02)
[2022-06-23] MEDS: Rosuvastatin 20 MG TAB PO SCH (21:02)
[2022-06-24 03:35] LABS: Anion Gap 19 mmol/L (10-20); BUN (Urea Nitrogen) 24 mg/dL (8.4-25.7); Calc. Creatinine Clearance 42 mL/min (70-130); Calcium 8.3 mg/dL (7.8-10.44); Carbon Dioxide 21 mmol/L (23-31); Chloride 103 mmol/L (98-107); Estimated GFR 31; Glucose 145 mg/dL (80-115); Sodium 140 mmol/L (136-145)
[2022-06-24] MEDS: Heparin 5,000 UNITS/ML VIAL SC SCH ×2 (07:58→21:03)
[2022-06-24] MEDS: Aspirin 81 mg Enteric Coated Tablet PO SCH (07:59)
[2022-06-24] MEDS: Polyethylene Glycol 3350 17 GM Packet PO SCH (07:59)
[2022-06-24] MEDS: Carvedilol 3.125 MG TAB PO SCH ×2 (07:59→21:03)
[2022-06-24] MEDS: Senokot S 8.6-50 MG TAB PO SCH ×2 (07:59→21:03)
[2022-06-24] MEDS: Cilostazol 100 MG TAB PO SCH (07:59)
[2022-06-24] MEDS ORDERED: Potassium Chloride 20 MEQ TAB PO SCH (08:45)
[2022-06-24] MEDS ORDERED: Cepastat Lozenges 1 LOZ PO PRN (11:06)
[2022-06-24] MEDS ORDERED: AFRIN NASAL MIST 15 ML BOT NS PRN (11:06)
[2022-06-24] MEDS: HumaLOG 300 UNITS/3 ML VIAL SC PRN (16:42)
[2022-06-24] MEDS: Nicotine 21 MG PATCH TD SCH (21:03)
[2022-06-24] MEDS: Rosuvastatin 20 MG TAB PO SCH (21:03)
[2022-06-25 07:24] LABS: Hemoglobin 13.7 g/dL (14.0-18.0); Mean Corpuscular HGB CONC 33.7 g/dL (32.0-36.0); Mean Corpuscular Hemoglobin 29.8 pg (27.0-31.0); Mean Corpuscular Volume 88.5 fL (78.0-98.0); Mean Platelet Volume 9.8 fL (7.4-10.4); Platelet Count 176 thou/uL (130-400); RBC Distribution Width 12.3 % (11.5-14.5); White Blood Cell (WBC) Count 8.7 thou/uL (4.8-10.8)
[2022-06-25 07:36] LABS: Anion Gap 17 mmol/L (10-20); BUN (Urea Nitrogen) 24 mg/dL (8.4-25.7); Calc. Creatinine Clearance 46 mL/min (70-130); Calcium 8.5 mg/dL (7.8-10.44); Carbon Dioxide 21 mmol/L (23-31); Chloride 105 mmol/L (98-107); Estimated GFR 39; Glucose 134 mg/dL (80-115); Potassium 3.1 mmol/L (3.5-5.1); Sodium 140 mmol/L (136-145)
[2022-06-25 07:58] LABS: Band 8 % (5-11); Eosinophils 2 % (0-10); Lymphocytes 27 % (21-51); MDiff Complete? YES; Monocytes 8 % (0-10); Neutrophil 44 % (42-75); Platelet Morphology Comment Appears Adequate; RBC Morphology Normal; Reactive Lymphocytes 11 % (0-10)
[2022-06-25] MEDS ORDERED: Potassium Chloride 20 MEQ TAB PO SCH (09:00)
[2022-06-25] MEDS: Aspirin 81 mg Enteric Coated Tablet PO SCH (09:02)
[2022-06-25] MEDS: Polyethylene Glycol 3350 17 GM Packet PO SCH ×3 (09:02→19:58)
[2022-06-25] MEDS: Carvedilol 3.125 MG TAB PO SCH ×2 (09:02→19:57)
[2022-06-25] MEDS: Heparin 5,000 UNITS/ML VIAL SC SCH ×2 (09:03→19:58)
[2022-06-25] MEDS: Senokot S 8.6-50 MG TAB PO SCH ×2 (09:18→19:57)
[2022-06-25] MEDS: HumaLOG 300 UNITS/3 ML VIAL SC PRN (12:25)
[2022-06-25] MEDS ORDERED: Polyethylene Glycol 3350 17 GM Packet PO PRN (14:39)
[2022-06-25] MEDS: Cefdinir 300 MG CAP PO SCH (17:10)
[2022-06-25] MEDS: Rosuvastatin 20 MG TAB PO SCH (19:57)
[2022-06-25] MEDS: Nicotine 21 MG PATCH TD SCH (19:58)
[2022-06-26 06:39] LABS: Hemoglobin 13.9 g/dL (14.0-18.0); Mean Corpuscular HGB CONC 34.2 g/dL (32.0-36.0); Mean Corpuscular Hemoglobin 30.2 pg (27.0-31.0); Mean Corpuscular Volume 88.3 fL (78.0-98.0); Mean Platelet Volume 8.2 fL (7.4-10.4); Platelet Count 254 thou/uL (130-400); RBC Distribution Width 12.3 % (11.5-14.5)
[2022-06-26 06:54] LABS: Anion Gap 14 mmol/L (10-20); BUN (Urea Nitrogen) 21 mg/dL (8.4-25.7); Calc. Creatinine Clearance 51 mL/min (70-130); Calcium 8.4 mg/dL (7.8-10.44); Carbon Dioxide 22 mmol/L (23-31); Chloride 108 mmol/L (98-107); Estimated GFR 44; Glucose 145 mg/dL (80-115); Potassium 3.4 mmol/L (3.5-5.1); Sodium 141 mmol/L (136-145)
[2022-06-26 08:10] LABS: Band 1 % (5-11); Eosinophils 1 % (0-10); Lymphocytes 35 % (21-51); MDiff Complete? YES; Monocytes 6 % (0-10); Neutrophil 52 % (42-75); RBC Morphology Normal; Reactive Lymphocytes 5 % (0-10)
[2022-06-26 08:25] VITALS: BP 125/76; TEMP 97.4
[2022-06-26] MEDS: Senokot S 8.6-50 MG TAB PO SCH (08:36)
[2022-06-26] MEDS: Aspirin 81 mg Enteric Coated Tablet PO SCH (08:36)
[2022-06-26] MEDS: Carvedilol 3.125 MG TAB PO SCH (08:36)
[2022-06-26] MEDS: Polyethylene Glycol 3350 17 GM Packet PO SCH (08:37)
[2022-06-26] MEDS: Heparin 5,000 UNITS/ML VIAL SC SCH (08:37)
[2022-06-26] MEDS: HumaLOG 300 UNITS/3 ML VIAL SC PRN (12:07)
[2022-06-26 13:46] VITALS: BMI 25.0
== END 2022-06-26 18:20 | disposition home or self-care (01) | DRG 682 ==
LOC: ERS 15:04 → CCU 19:39 → 2NO 06-22 07:03 → T4-A 06-24 13:59
PROVIDERS: ADMIT Student in an Organized Health Care Education/Training Program; ATTEND Hospitalist
PROC: 06HY33Z Insertion of Infusion Device into Lower Vein, Percutaneous Approach (ICD-10-PCS; principal; 2022-06-19)
PROC: 5A1D70Z Performance of Urinary Filtration, Intermittent, Less than 6 Hours Per Day (ICD-10-PCS; 2022-06-19)
PROC: 0D9670Z Drainage of Stomach with Drainage Device, Via Natural or Artificial Opening (ICD-10-PCS; 2022-06-19)
PROC: 5A1D70Z Performance of Urinary Filtration, Intermittent, Less than 6 Hours Per Day (ICD-10-PCS; 2022-06-20)
PROC: 5A1D70Z Performance of Urinary Filtration, Intermittent, Less than 6 Hours Per Day (ICD-10-PCS; 2022-06-20)
PROC: 30233J1 Transfusion of Nonautologous Serum Albumin into Peripheral Vein, Percutaneous Approach (ICD-10-PCS; 2022-06-20)
PROC: 8E0ZXY6 Isolation (ICD-10-PCS; 2022-06-25)
DX: N17.0 Acute kidney failure with tubular necrosis (principal); J96.90 Respiratory failure, unspecified, unspecified whether with hypoxia or hypercapnia; U07.1 COVID-19; E87.2 Acidosis; E87.3 Alkalosis; I69.351 Hemiplegia and hemiparesis following cerebral infarction affecting right dominant side; I12.0 Hypertensive chronic kidney disease with stage 5 chronic kidney disease or end stage renal disease; E78.00 Pure hypercholesterolemia, unspecified; N18.6 End stage renal disease; E78.5 Hyperlipidemia, unspecified; E86.0 Dehydration; E11.649 Type 2 diabetes mellitus with hypoglycemia without coma; I25.10 Atherosclerotic heart disease of native coronary artery without angina pectoris; E11.22 Type 2 diabetes mellitus with diabetic chronic kidney disease; F17.210 Nicotine dependence, cigarettes, uncomplicated; E87.6 Hypokalemia; E83.51 Hypocalcemia; E83.39 Other disorders of phosphorus metabolism; Z79.899 Other long term (current) drug therapy; Z79.4 Long term (current) use of insulin; Z79.82 Long term (current) use of aspirin; I25.2 Old myocardial infarction; Z95.5 Presence of coronary angioplasty implant and graft; Z90.49 Acquired absence of other specified parts of digestive tract; Z98.890 Other specified postprocedural states; I69.341 Monoplegia of lower limb following cerebral infarction affecting right dominant side
CPT/HCPCS: 36415; 36416; 36600; 70450; 71045; 72072; 74018; 74176; 76770; 80048; 80053; 80202; 81001; 81003; 81015; 82570; 82805; 83605; 83690; 83735; 83880; 83930; 84100; 84133; 84145; 84300; 84484; 85025; 86704; 87040; 87086; 87340; 90935; 93005; 93010; 93970; 96361; 96365; 96366; 96367; 96374; 96375; C9113; G0257; J0692; J0696; J1642; J1644; J1815; J2270; J2405; J2550; J2765; J3370; J3475; J3480; J3490; J7042; J7070; P9047; S0028; U0002; U0003; U0005

== ENCOUNTER 2022-07-06 11:05 | Emergency (ER) | payer MEDICARE ==
[2022-07-06 12:38] LABS: #Basophils 0.1 thou/uL (0.0-0.2); #Eosinphils 0.1 thou/uL (0.0-0.7); #Lymphocytes 2.5 thou/uL (1.20-3.40); #Monocytes 1.1 thou/uL (0.11-0.59); #Neutrophils 12.1 thou/uL (1.40-6.50); %Basophils 0.7 % (0.0-1.0); %Eosinophils 0.6 % (0.0-10.0); %Lymphocytes 15.7 % (21.0-51.0); %Neutrophils 76.1 % (42.0-75.0); Hemoglobin 12.3 g/dL (14.0-18.0); Mean Corpuscular HGB CONC 33.8 g/dL (32.0-36.0); Mean Corpuscular Hemoglobin 30.2 pg (27.0-31.0); Mean Corpuscular Volume 89.4 fL (78.0-98.0); Mean Platelet Volume 7.8 fL (7.4-10.4); Platelet Count 379 thou/uL (130-400); RBC Distribution Width 12.6 % (11.5-14.5); Red Blood Cell (RBC) Count 4.07 mill/uL (4.70-6.10)
[2022-07-06 13:01] LABS: ALT (SGPT) 20 U/L (8-55); AST (SGOT) 17 U/L (5-34); Albumin 3.5 g/dL (3.4-4.8); Alkaline Phosphatase 75 U/L (40-110); Anion Gap 13 mmol/L (10-20); BUN (Urea Nitrogen) 22 mg/dL (8.4-25.7); Bilirubin, Total 0.4 mg/dL (0.2-1.2); Calc. Creatinine Clearance 0 mL/min (70-130); Calcium 9.1 mg/dL (7.8-10.44); Carbon Dioxide 29 mmol/L (23-31); Chloride 100 mmol/L (98-107); Estimated GFR 37; Globulin 3.1 g/dL (2.4-3.5); Glucose 375 mg/dL (80-115); Potassium 3.3 mmol/L (3.5-5.1); Protein, Total 6.6 g/dL (5.8-8.1); Sodium 139 mmol/L (136-145)
[2022-07-06] MEDS ORDERED: Lidocaine 1% PF 5 ML VIAL ONE (13:17)
[2022-07-06] MEDS ORDERED: Lidocaine 2% PF 5 ML VIAL ONE ×2 (13:18→13:25)
== END 2022-07-06 14:16 | disposition home or self-care (01) ==
LOC: ERS 11:05
DX: L02.214 Cutaneous abscess of groin (principal); F17.210 Nicotine dependence, cigarettes, uncomplicated; E78.5 Hyperlipidemia, unspecified; I10 Essential (primary) hypertension; I25.2 Old myocardial infarction; E11.9 Type 2 diabetes mellitus without complications; Z79.899 Other long term (current) drug therapy
CPT/HCPCS: 10060; 36415; 76881; 80053; 83605; 85025; 87040; J2001

== ENCOUNTER 2022-07-06 21:17 | Emergency (ER) | payer MEDICARE | END 2022-07-06 23:21 | disposition home or self-care (01) | LOC: ERS 21:17 | DX: L02.214 Cutaneous abscess of groin (principal); I25.2 Old myocardial infarction; E78.5 Hyperlipidemia, unspecified; I10 Essential (primary) hypertension; E11.9 Type 2 diabetes mellitus without complications; F17.210 Nicotine dependence, cigarettes, uncomplicated; Z79.899 Other long term (current) drug therapy | CPT/HCPCS: 99283 ==

== ENCOUNTER 2023-11-25 13:34 | Outpatient (CLI) | payer MEDICARE | END 2023-11-25 13:35 | disposition home or self-care (01) | LOC: RAD 13:34 | PROVIDERS: ATTEND Internal Medicine Critical Care Medicine | DX: R06.00 Dyspnea, unspecified (principal); J98.4 Other disorders of lung; J90 Pleural effusion, not elsewhere classified | CPT/HCPCS: 71046 ==

== ENCOUNTER 2023-12-11 16:00 | Outpatient (CLI) | payer MEDICARE | END 2023-12-11 16:01 | disposition home or self-care (01) | LOC: SLEEPLAB 16:00 | PROVIDERS: ATTEND Internal Medicine Critical Care Medicine | DX: G47.33 Obstructive sleep apnea (adult) (pediatric) (principal); J44.9 Chronic obstructive pulmonary disease, unspecified; I51.89 Other ill-defined heart diseases | CPT/HCPCS: 95810 ==

== ENCOUNTER 2024-05-10 13:03 | Outpatient (CLI) | payer MEDICARE | END 2024-05-10 13:04 | disposition home or self-care (01) | LOC: RAD 13:03 | PROVIDERS: ATTEND Internal Medicine Critical Care Medicine | DX: R06.00 Dyspnea, unspecified (principal) | CPT/HCPCS: 71046 ==